=== PATIENT | female | born 1955 | race Caucasian/White ===

== ENCOUNTER 2016-05-19 10:00 | Inpatient (IN) | payer MEDICARE, MEDICAID ==
[~2016-05-19] VITALS: Ht 162.6 cm; Wt 63.2 kg
[~2016-05-19 10:00] MED LIST: DOCU250C91 PO; LITH300C3 PO; PALI234D IM; QUET300T2 PO
[2016-05-19 12:29] VITALS: BP 103/54
[2016-05-19] MEDS ORDERED: QUET200T PO (12:51)
[2016-05-19] MEDS ORDERED: HALOPERIDOL 5 MG TABLET PO PRN (13:00)
[2016-05-19] MEDS ORDERED: INFLUENZA VIRUS VACCINE QVS 2016-17 (3YR+)/PF 60 MCG/0.5 ML SYRINGE IM ONE (13:15)
[2016-05-19] MEDS: LITHIUM CARBONATE 300 MG CAPSULE PO SCH (17:00)
[2016-05-19 17:10] VITALS: BP 130/87
[2016-05-19] MEDS: QUEtiapine FUMARATE 200 MG TABLET PO SCH (20:18)
[2016-05-20 08:29] VITALS: BP 120/55
[2016-05-20] MEDS: LITHIUM CARBONATE 300 MG CAPSULE PO SCH ×2 (09:00→16:33)
[2016-05-20 16:05] VITALS: BP 126/81
[2016-05-20] MEDS: QUEtiapine FUMARATE 200 MG TABLET PO SCH (20:38)
[2016-05-21 06:03] VITALS: BP 106/61
[2016-05-21 08:19] VITALS: BP 100/67
[2016-05-21 08:29] LABS: BASOPHILS % (AUTO) 0.5 % (0.0-2.0); EOSINOPHILS % (AUTO) 1.1 % (1.0-6.0); HEMATOCRIT 44.8 % (36-46); HEMOGLOBIN 14.9 g/dL (12.0-16.0); LYMPHOCYTES % (AUTO) 25.5 % (22.0-44.0); MEAN CORPUSCULAR HEMOGLOBIN 30.9 pg (26.0-34.0); MEAN CORPUSCULAR HGB CONC 33.1 G/dL (31.0-37.0); MEAN CORPUSCULAR VOLUME 93 fL (80-100); MONOCYTES # (AUTO) 0.7 K/uL (0.1-1.0); MONOCYTES % (AUTO) 8.9 % (2.0-9.0); NEUTROPHILS # (AUTO) 5.1 K/uL (1.8-7.7); PLATELET COUNT (AUTO) 263 K/uL (150-450); RED CELL DISTRIBUTION WIDTH 14.6 % (11.5-14.5)
[2016-05-21 08:54] LABS: ALANINE AMINOTRANSFERASE 22 U/L (12-78); ALBUMIN 3.8 g/dL (3.4-5.0); ANION GAP 9 mmol/L (8-16); ASPARTATE AMINOTRANSFERASE 16 U/L (15-37); BILIRUBIN,TOTAL 0.6 mg/dL (0.1-1.0); CALCIUM, TOTAL 9.3 mg/dL (8.8-10.5); CARBON DIOXIDE 27 mmol/L (22-29); CHLORIDE 105 mmol/L (98-107); CREATININE 0.77 mg/dL (0.60-1.30); GLOMERULAR FILTR. RATE CALC > 60 mL/min (>60); SODIUM SERUM 141 mmol/L (136-145); UREA NITROGEN, BLOOD 18 mg/dL (7-18)
[2016-05-21] MEDS: LITHIUM CARBONATE 300 MG CAPSULE PO SCH ×2 (09:39→17:00)
[2016-05-21 16:13] VITALS: BP 115/62
[2016-05-21] MEDS: QUEtiapine FUMARATE 200 MG TABLET PO SCH (20:33)
[2016-05-22 08:09] VITALS: BP 101/63
[2016-05-22] MEDS: LITHIUM CARBONATE 300 MG CAPSULE PO SCH ×2 (09:00→16:44)
[2016-05-22 16:13] VITALS: BP 116/68
[2016-05-22] MEDS: QUEtiapine FUMARATE 200 MG TABLET PO SCH (20:33)
[2016-05-23] MEDS: LITHIUM CARBONATE 300 MG CAPSULE PO SCH ×2 (09:38→17:00)
[2016-05-23] MEDS: QUEtiapine FUMARATE 200 MG TABLET PO SCH (21:00)
[2016-05-24 08:37] VITALS: BP 104/84
[2016-05-24] MEDS: LITHIUM CARBONATE 300 MG CAPSULE PO SCH ×2 (09:00→17:00)
[2016-05-24 16:05] VITALS: BP 114/75
[2016-05-24] MEDS: QUEtiapine FUMARATE 200 MG TABLET PO SCH (21:00)
[2016-05-25] MEDS: LITHIUM CARBONATE 300 MG CAPSULE PO SCH ×2 (09:00→17:00)
[2016-05-25] MEDS: QUEtiapine FUMARATE 200 MG TABLET PO SCH (20:38)
[2016-05-26 08:42] VITALS: BP 104/65
[2016-05-26] MEDS: LITHIUM CARBONATE 300 MG CAPSULE PO SCH ×2 (08:48→16:49)
[2016-05-26 16:21] VITALS: BP 121/81
[2016-05-26] MEDS: QUEtiapine FUMARATE 200 MG TABLET PO SCH (20:42)
[2016-05-27 08:12] VITALS: BP 102/66
[2016-05-27] MEDS: LITHIUM CARBONATE 300 MG CAPSULE PO SCH ×2 (08:46→17:00)
[2016-05-27] MEDS ORDERED: HALOPERIDOL LACTATE 5 MG/ML VIAL IM PRN (09:00)
[2016-05-27] MEDS: QUEtiapine FUMARATE 200 MG TABLET PO SCH (20:32)
[2016-05-28 00:03] VITALS: BP 123/90
[2016-05-28] MEDS: LITHIUM CARBONATE 300 MG CAPSULE PO SCH ×2 (08:42→16:38)
[2016-05-28] MEDS: QUEtiapine FUMARATE 200 MG TABLET PO SCH (20:44)
[2016-05-29] MEDS: LITHIUM CARBONATE 300 MG CAPSULE PO SCH ×2 (09:11→16:11)
[2016-05-29 09:14] VITALS: BP 102/60
[2016-05-29] MEDS: QUEtiapine FUMARATE 200 MG TABLET PO SCH (20:21)
[2016-05-30 04:51] VITALS: BP 125/89
[2016-05-30] MEDS: LITHIUM CARBONATE 300 MG CAPSULE PO SCH ×2 (09:24→16:02)
[2016-05-30 16:13] VITALS: BP 104/68
[2016-05-30] MEDS: QUEtiapine FUMARATE 200 MG TABLET PO SCH (20:11)
[2016-05-30] MEDS ORDERED: MAGNESIUM CITRATE 300 ML ORAL SOLUTION PO PRN (21:15)
[2016-05-31] MEDS: DOCUSATE SODIUM 250 MG CAPSULE PO SCH (08:53)
[2016-05-31] MEDS: LITHIUM CARBONATE 300 MG CAPSULE PO SCH ×2 (08:53→16:35)
[2016-05-31 16:15] VITALS: BP 101/65
[2016-05-31] MEDS: QUEtiapine FUMARATE 200 MG TABLET PO SCH (20:17)
[2016-06-01 03:19] VITALS: BP 104/63
[2016-06-01] MEDS: DOCUSATE SODIUM 250 MG CAPSULE PO SCH (09:00)
[2016-06-01] MEDS: LITHIUM CARBONATE 300 MG CAPSULE PO SCH ×2 (09:00→16:43)
[2016-06-01] MEDS: QUEtiapine FUMARATE 200 MG TABLET PO SCH (20:37)
[2016-06-02 08:25] VITALS: BP 107/78
[2016-06-02] MEDS: LITHIUM CARBONATE 300 MG CAPSULE PO SCH ×2 (09:39→17:14)
[2016-06-02] MEDS: DOCUSATE SODIUM 250 MG CAPSULE PO SCH (09:39)
[2016-06-02 16:14] VITALS: BP 103/63
[2016-06-02] MEDS: QUEtiapine FUMARATE 200 MG TABLET PO SCH (20:37)
[2016-06-03 06:26] VITALS: BP 100/69
[2016-06-03 08:11] VITALS: BP 100/59
[2016-06-03] MEDS: DOCUSATE SODIUM 250 MG CAPSULE PO SCH (09:29)
[2016-06-03] MEDS: LITHIUM CARBONATE 300 MG CAPSULE PO SCH ×2 (09:29→17:07)
[2016-06-03 16:15] VITALS: BP 123/75
[2016-06-03] MEDS: QUEtiapine FUMARATE 200 MG TABLET PO SCH (20:35)
[2016-06-04 08:11] VITALS: BP 117/60
[2016-06-04] MEDS: DOCUSATE SODIUM 250 MG CAPSULE PO SCH (09:13)
[2016-06-04] MEDS: LITHIUM CARBONATE 300 MG CAPSULE PO SCH ×2 (09:13→17:15)
[2016-06-04] MEDS: QUEtiapine FUMARATE 200 MG TABLET PO SCH (20:46)
[2016-06-05 05:53] VITALS: BP 104/67
[2016-06-05 08:12] VITALS: BP 111/83
[2016-06-05] MEDS: LITHIUM CARBONATE 300 MG CAPSULE PO SCH ×2 (08:55→16:39)
[2016-06-05] MEDS: DOCUSATE SODIUM 250 MG CAPSULE PO SCH (08:55)
[2016-06-05] MEDS: MAGNESIUM HYDROXIDE SUSPENSION 30 ML UDCUP PO PRN (11:39)
[2016-06-05] MEDS: LORazepam 2 MG TABLET PO PRN (11:41)
[2016-06-05 16:08] VITALS: BP 118/88
[2016-06-05] MEDS: QUEtiapine FUMARATE 200 MG TABLET PO SCH (20:34)
[2016-06-05] MEDS ORDERED: RisperiDONE 2 MG TABLET PO SCH (21:00)
[2016-06-06 05:59] VITALS: BP 114/74
[2016-06-06] MEDS: LITHIUM CARBONATE 300 MG CAPSULE PO SCH ×2 (09:33→16:39)
[2016-06-06] MEDS: DOCUSATE SODIUM 250 MG CAPSULE PO SCH (09:33)
[2016-06-06] MEDS: POLYETHYLENE GLYCOL 3350 17 GM PACKET PO PRN (09:56)
[2016-06-06] MEDS: QUEtiapine FUMARATE 200 MG TABLET PO SCH (20:18)
[2016-06-06] MEDS: ZOLPIDEM TARTRATE 10 MG TABLET PO PRN (20:55)
[2016-06-07 08:31] VITALS: BP 101/63
[2016-06-07] MEDS: DOCUSATE SODIUM 250 MG CAPSULE PO SCH (09:38)
[2016-06-07] MEDS: LITHIUM CARBONATE 300 MG CAPSULE PO SCH ×2 (09:38→16:16)
[2016-06-07 16:11] VITALS: BP 103/64
[2016-06-07] MEDS: QUEtiapine FUMARATE 200 MG TABLET PO SCH (20:30)
[2016-06-08 08:11] VITALS: BP 108/66
[2016-06-08] MEDS: LITHIUM CARBONATE 300 MG CAPSULE PO SCH ×2 (08:22→16:08)
[2016-06-08] MEDS: DOCUSATE SODIUM 250 MG CAPSULE PO SCH ×2 (08:23→20:04)
[2016-06-08] MEDS: MAGNESIUM HYDROXIDE SUSPENSION 30 ML UDCUP PO PRN (16:08)
[2016-06-08 16:14] VITALS: BP 112/71
[2016-06-08] MEDS: QUEtiapine FUMARATE 200 MG TABLET PO SCH (20:04)
[2016-06-08 21:46] VITALS: BP 110/68
[2016-06-08] MEDS: IBUPROFEN 600 MG TABLET PO PRN (21:46)
[2016-06-09 08:11] VITALS: BP 108/55
[2016-06-09] MEDS: DOCUSATE SODIUM 250 MG CAPSULE PO SCH ×2 (08:57→20:40)
[2016-06-09] MEDS: LITHIUM CARBONATE 300 MG CAPSULE PO SCH ×2 (08:57→16:41)
[2016-06-09] MEDS: IBUPROFEN 600 MG TABLET PO PRN (17:35)
[2016-06-09 17:36] VITALS: BP 123/80
[2016-06-09] MEDS: QUEtiapine FUMARATE 200 MG TABLET PO SCH (20:40)
[2016-06-10 00:04] VITALS: BP 117/71
[2016-06-10] MEDS: LORazepam 2 MG TABLET PO PRN (01:01)
[2016-06-10] MEDS: LITHIUM CARBONATE 300 MG CAPSULE PO SCH ×2 (08:44→16:40)
[2016-06-10] MEDS: DOCUSATE SODIUM 250 MG CAPSULE PO SCH ×2 (08:44→20:43)
[2016-06-10 10:23] VITALS: BP 114/72
[2016-06-10] MEDS: IBUPROFEN 600 MG TABLET PO PRN ×2 (10:23→17:26)
[2016-06-10 16:17] VITALS: BP 103/63
[2016-06-10 17:26] VITALS: BP 124/67
[2016-06-10] MEDS: QUEtiapine FUMARATE 200 MG TABLET PO SCH (20:43)
[2016-06-11 08:12] VITALS: BP 107/63
[2016-06-11] MEDS: DOCUSATE SODIUM 250 MG CAPSULE PO SCH ×2 (09:03→20:45)
[2016-06-11] MEDS: LITHIUM CARBONATE 300 MG CAPSULE PO SCH ×2 (09:03→16:39)
[2016-06-11] MEDS: MAGNESIUM HYDROXIDE SUSPENSION 30 ML UDCUP PO PRN (09:05)
[2016-06-11] MEDS: IBUPROFEN 600 MG TABLET PO PRN (13:49)
[2016-06-11 16:19] VITALS: BP 109/72
[2016-06-11] MEDS: LORazepam 2 MG TABLET PO PRN (16:39)
[2016-06-11] MEDS: QUEtiapine FUMARATE 200 MG TABLET PO SCH (20:45)
[2016-06-12 00:12] VITALS: BP 108/66
[2016-06-12] MEDS: LORazepam 2 MG TABLET PO PRN (04:59)
[2016-06-12 08:12] VITALS: BP 106/59
[2016-06-12] MEDS: DOCUSATE SODIUM 250 MG CAPSULE PO SCH ×2 (08:46→20:02)
[2016-06-12] MEDS: LITHIUM CARBONATE 300 MG CAPSULE PO SCH ×2 (08:46→17:00)
[2016-06-12] MEDS: IBUPROFEN 600 MG TABLET PO PRN ×2 (08:56→18:15)
[2016-06-12] MEDS: MAGNESIUM HYDROXIDE SUSPENSION 30 ML UDCUP PO PRN ×2 (14:52→18:15)
[2016-06-12 16:12] VITALS: BP 134/76
[2016-06-12] MEDS: QUEtiapine FUMARATE 200 MG TABLET PO SCH (20:02)
[2016-06-12] MEDS: ZOLPIDEM TARTRATE 10 MG TABLET PO PRN (20:39)
[2016-06-13 07:00] VITALS: BP 112/71
[2016-06-13 08:10] VITALS: BP 106/68
[2016-06-13] MEDS: LITHIUM CARBONATE 300 MG CAPSULE PO SCH ×2 (08:33→16:40)
[2016-06-13] MEDS: DOCUSATE SODIUM 250 MG CAPSULE PO SCH ×2 (08:33→20:35)
[2016-06-13] MEDS: POLYETHYLENE GLYCOL 3350 17 GM PACKET PO PRN (08:34)
[2016-06-13 09:56] VITALS: BP 110/66
[2016-06-13] MEDS: IBUPROFEN 600 MG TABLET PO PRN ×2 (09:56→16:21)
[2016-06-13 16:06] VITALS: BP 115/77
[2016-06-13] MEDS: MAGNESIUM HYDROXIDE SUSPENSION 30 ML UDCUP PO PRN (16:20)
[2016-06-13] MEDS: QUEtiapine FUMARATE 200 MG TABLET PO SCH (20:35)
[2016-06-14 05:48] VITALS: BP 109/82
[2016-06-14] MEDS: IBUPROFEN 600 MG TABLET PO PRN ×2 (06:15→12:57)
[2016-06-14 08:12] VITALS: BP 99/59
[2016-06-14] MEDS: LITHIUM CARBONATE 300 MG CAPSULE PO SCH ×2 (08:25→16:34)
[2016-06-14] MEDS: DOCUSATE SODIUM 250 MG CAPSULE PO SCH ×2 (08:25→20:47)
[2016-06-14 09:55] LABS: BASOPHILS % (AUTO) 0.3 % (0.0-2.0); EOSINOPHILS % (AUTO) 3.1 % (1.0-6.0); HEMATOCRIT 37.5 % (36-46); HEMOGLOBIN 12.2 g/dL (12.0-16.0); LYMPHOCYTES # (AUTO) 1.5 K/uL (1.0-4.8); LYMPHOCYTES % (AUTO) 22.7 % (22.0-44.0); MEAN CORPUSCULAR HEMOGLOBIN 30.8 pg (26.0-34.0); MEAN CORPUSCULAR HGB CONC 32.6 G/dL (31.0-37.0); MEAN CORPUSCULAR VOLUME 95 fL (80-100); MONOCYTES # (AUTO) 0.5 K/uL (0.1-1.0); MONOCYTES % (AUTO) 6.7 % (2.0-9.0); NEUTROPHILS # (AUTO) 4.5 K/uL (1.8-7.7); NEUTROPHILS % (AUTO) 67.2 % (40.0-70.0); PLATELET COUNT (AUTO) 272 K/uL (150-450); RED BLOOD CELL COUNT(AUTO) 3.97 MIL/uL (4.00-5.20); RED CELL DISTRIBUTION WIDTH 14.6 % (11.5-14.5); WHITE BLOOD COUNT (AUTO) 6.7 K/uL (4.5-11.0)
[2016-06-14 09:58] LABS: ALANINE AMINOTRANSFERASE 25 U/L (12-78); ALBUMIN 3.6 g/dL (3.4-5.0); ANION GAP 9 mmol/L (8-16); ASPARTATE AMINOTRANSFERASE 22 U/L (15-37); BILIRUBIN,TOTAL 0.4 mg/dL (0.1-1.0); CALCIUM, TOTAL 8.9 mg/dL (8.8-10.5); CARBON DIOXIDE 27 mmol/L (22-29); CHLORIDE 105 mmol/L (98-107); CREATININE 0.86 mg/dL (0.60-1.30); GLOMERULAR FILTR. RATE CALC > 60 mL/min (>60); POTASSIUM 4.2 mmol/L (3.5-5.1); SODIUM SERUM 141 mmol/L (136-145); UREA NITROGEN, BLOOD 13 mg/dL (7-18)
[2016-06-14 10:08] LABS: HEMOGLOBIN A1C 5.3 % (4.5-6.2)
[2016-06-14 10:39] LABS: CHOL/HDL RATIO 3.6 (3.9-5.7); CREATINE KINASE MB 0.7 ng/mL (0-5); CREATINE KINASE, TOTAL 87 U/L (26-192); THYROID STIMULATING HORMONE 4.18 uIU/mL (0.36-3.74)
[2016-06-14 12:57] VITALS: BP 112/64
[2016-06-14 16:14] VITALS: BP 106/67
[2016-06-14] MEDS: QUEtiapine FUMARATE 200 MG TABLET PO SCH (20:47)
[2016-06-15 00:05] VITALS: BP 117/60
[2016-06-15 08:10] VITALS: BP 113/65
[2016-06-15] MEDS: LITHIUM CARBONATE 300 MG CAPSULE PO SCH ×2 (08:33→16:41)
[2016-06-15] MEDS: DOCUSATE SODIUM 250 MG CAPSULE PO SCH (08:34)
[2016-06-15] MEDS: MAGNESIUM HYDROXIDE SUSPENSION 30 ML UDCUP PO PRN (10:04)
[2016-06-15] MEDS: IBUPROFEN 600 MG TABLET PO PRN (10:04)
[2016-06-15 10:06] VITALS: BP 122/73
[2016-06-15 11:06] VITALS: BP 117/64
[2016-06-15 16:16] VITALS: BP 123/73
[2016-06-16 02:31] LABS: HEPATITIS Bs ANTIGEN SCREEN P Negative (Negative); HEPATITIS C AB SCREEN >11.0 s/co ratio (0.0-0.9)
== END 2016-06-15 18:40 | disposition home or self-care (01) | DRG 885 ==
LOC: B2X 12:51 → EDSTATUS 12:59
DX: F25.1 Schizoaffective disorder, depressive type (principal); G47.00 Insomnia, unspecified; F90.9 Attention-deficit hyperactivity disorder, unspecified type; I83.91 Asymptomatic varicose veins of right lower extremity; K59.00 Constipation, unspecified; D64.9 Anemia, unspecified; Z53.29 Procedure and treatment not carried out because of patient's decision for other reasons; F03.90 Unspecified dementia, unspecified severity, without behavioral disturbance, psychotic disturbance, mood disturbance, and anxiety; Z91.14 Patient's other noncompliance with medication regimen; Z91.5 Personal history of self-harm; Z88.6 Allergy status to analgesic agent; Z28.21 Immunization not carried out because of patient refusal; Z59.0 Homelessness; Z87.440 Personal history of urinary (tract) infections
CPT/HCPCS: 80074; 82306; 82607; 82746; 83036; 83735; 84439; 84443; 86592; 87081; J1630

== ENCOUNTER 2016-06-15 23:34 | Inpatient (IN) | payer MEDICARE, MEDICAID ==
[~2016-06-15] VITALS: Ht 162.6 cm; Wt 67.1 kg
[~2016-06-15 23:34] MED LIST changes: -PALI234D IM; +QUET200T PO; -QUET300T2 PO
[2016-06-16 02:44] VITALS: BP 121/67
[2016-06-16] MEDS ORDERED: LORazepam 2 MG TABLET PO PRN (03:45)
[2016-06-16] MEDS ORDERED: ZOLPIDEM TARTRATE 10 MG TABLET PO PRN (03:45)
[2016-06-16] MEDS ORDERED: HALOPERIDOL 5 MG TABLET PO PRN (03:45)
[2016-06-16 04:47] VITALS: BP 144/88
[2016-06-16] MEDS ORDERED: -PHARMACY VACCINE NOTE- MISC ONE ×2 (05:00)
[2016-06-16 08:27] VITALS: BP 103/68
[2016-06-16 16:17] VITALS: BP 128/78
[2016-06-16] MEDS: LITHIUM CARBONATE 300 MG CAPSULE PO SCH (16:36)
[2016-06-16] MEDS ORDERED: LITHIUM CARBONATE 300 MG CAPSULE PO SCH (17:00)
[2016-06-16] MEDS: MAGNESIUM HYDROXIDE SUSPENSION 30 ML UDCUP PO PRN (17:50)
[2016-06-16 17:58] VITALS: BP 134/83
[2016-06-16] MEDS: IBUPROFEN 600 MG TABLET PO PRN (18:02)
[2016-06-16] MEDS: DOCUSATE SODIUM 250 MG CAPSULE PO SCH (20:36)
[2016-06-16] MEDS ORDERED: QUEtiapine FUMARATE 200 MG TABLET PO SCH ×2 (21:00)
[2016-06-17] MEDS: IBUPROFEN 600 MG TABLET PO PRN (07:15)
[2016-06-17] MEDS: MAGNESIUM HYDROXIDE SUSPENSION 30 ML UDCUP PO PRN (07:16)
[2016-06-17 07:17] VITALS: BP 109/69
[2016-06-17 08:10] VITALS: BP 135/84
[2016-06-17 08:24] LABS: BASOPHILS % (AUTO) 0.6 % (0.0-2.0); EOSINOPHILS % (AUTO) 3.7 % (1.0-6.0); HEMATOCRIT 34.9 % (36-46); HEMOGLOBIN 11.6 g/dL (12.0-16.0); LYMPHOCYTES # (AUTO) 1.6 K/uL (1.0-4.8); LYMPHOCYTES % (AUTO) 23.7 % (22.0-44.0); MEAN CORPUSCULAR HEMOGLOBIN 31.1 pg (26.0-34.0); MEAN CORPUSCULAR HGB CONC 33.3 G/dL (31.0-37.0); MEAN CORPUSCULAR VOLUME 93 fL (80-100); MONOCYTES # (AUTO) 0.5 K/uL (0.1-1.0); MONOCYTES % (AUTO) 7.8 % (2.0-9.0); NEUTROPHILS # (AUTO) 4.3 K/uL (1.8-7.7); NEUTROPHILS % (AUTO) 64.2 % (40.0-70.0); PLATELET COUNT (AUTO) 300 K/uL (150-450); RED BLOOD CELL COUNT(AUTO) 3.73 MIL/uL (4.00-5.20); RED CELL DISTRIBUTION WIDTH 15.1 % (11.5-14.5); WHITE BLOOD COUNT (AUTO) 6.8 K/uL (4.5-11.0)
[2016-06-17] MEDS: DOCUSATE SODIUM 250 MG CAPSULE PO SCH (08:27)
[2016-06-17] MEDS: LITHIUM CARBONATE 300 MG CAPSULE PO SCH (08:28)
[2016-06-17 08:37] LABS: ALBUMIN 3.6 g/dL (3.4-5.0); BILIRUBIN,TOTAL 0.3 mg/dL (0.1-1.0); CALCIUM, TOTAL 8.8 mg/dL (8.8-10.5); CREATININE 0.98 mg/dL (0.60-1.30); POTASSIUM 4.1 mmol/L (3.5-5.1); TOTAL PROTEIN, SERUM 6.5 g/dL (6.4-8.2)
== END 2016-06-17 12:00 | disposition home or self-care (01) | DRG 885 ==
LOC: UNDOADMIN 06-16 02:48 → B3A 06-16 02:48 → B2X 06-16 11:01
DX: F20.0 Paranoid schizophrenia (principal); E78.5 Hyperlipidemia, unspecified; B19.20 Unspecified viral hepatitis C without hepatic coma; E03.9 Hypothyroidism, unspecified; D64.9 Anemia, unspecified; Z96.652 Presence of left artificial knee joint; K59.00 Constipation, unspecified; F41.9 Anxiety disorder, unspecified; E55.9 Vitamin D deficiency, unspecified; K29.70 Gastritis, unspecified, without bleeding; Z72.89 Other problems related to lifestyle; Z88.6 Allergy status to analgesic agent
CPT/HCPCS: 87081

== ENCOUNTER 2016-08-27 11:09 | Inpatient (IN) | payer MEDICARE, MEDICAID ==
[~2016-08-27] VITALS: Ht 162.6 cm; Wt 55.9 kg
[2016-08-27 13:15] VITALS: BP 115/72
[2016-08-27 13:40] VITALS: BP 149/73
[2016-08-27 16:36] VITALS: BP 116/61
[2016-08-27] MEDS: LITHIUM CARBONATE 300 MG CAPSULE PO SCH (16:53)
[2016-08-27] MEDS: QUEtiapine FUMARATE 200 MG TABLET PO SCH (20:33)
[2016-08-28 08:29] LABS: BASOPHILS % (AUTO) 0.1 % (0.0-2.0); EOSINOPHILS % (AUTO) 1.5 % (1.0-6.0); HEMATOCRIT 41.1 % (36-46); HEMOGLOBIN 13.6 g/dL (12.0-16.0); LYMPHOCYTES # (AUTO) 1.5 K/uL (1.0-4.8); LYMPHOCYTES % (AUTO) 18.6 % (22.0-44.0); MEAN CORPUSCULAR HEMOGLOBIN 30.6 pg (26.0-34.0); MEAN CORPUSCULAR VOLUME 93 fL (80-100); MONOCYTES # (AUTO) 0.7 K/uL (0.1-1.0); MONOCYTES % (AUTO) 9.2 % (2.0-9.0); NEUTROPHILS # (AUTO) 5.5 K/uL (1.8-7.7); NEUTROPHILS % (AUTO) 70.6 % (40.0-70.0); PLATELET COUNT (AUTO) 321 K/uL (150-450); RED BLOOD CELL COUNT(AUTO) 4.43 MIL/uL (4.00-5.20); RED CELL DISTRIBUTION WIDTH 14.3 % (11.5-14.5); WHITE BLOOD COUNT (AUTO) 7.9 K/uL (4.5-11.0)
[2016-08-28 08:35] LABS: LITHIUM < 0.20 mmol/L (0.60-1.20)
[2016-08-28 08:38] LABS: ALANINE AMINOTRANSFERASE 21 U/L (12-78); ALBUMIN 3.1 g/dL (3.4-5.0); ANION GAP 7 mmol/L (8-16); ASPARTATE AMINOTRANSFERASE 14 U/L (15-37); BILIRUBIN,TOTAL 0.3 mg/dL (0.1-1.0); CALCIUM, TOTAL 8.9 mg/dL (8.8-10.5); CARBON DIOXIDE 27 mmol/L (22-29); CHLORIDE 106 mmol/L (98-107); CHOL/HDL RATIO 3.6 (3.9-5.7); CREATINE KINASE, TOTAL 40 U/L (26-192); CREATININE 0.79 mg/dL (0.60-1.30); GLOMERULAR FILTR. RATE CALC > 60 mL/min (>60); POTASSIUM 3.6 mmol/L (3.5-5.1); SODIUM SERUM 140 mmol/L (136-145); THYROID STIMULATING HORMONE 0.22 uIU/mL (0.36-3.74); TOTAL PROTEIN, SERUM 6.6 g/dL (6.4-8.2); UREA NITROGEN, BLOOD 27 mg/dL (7-18)
[2016-08-28] MEDS: LITHIUM CARBONATE 300 MG CAPSULE PO SCH ×2 (08:41→16:27)
[2016-08-28] MEDS: LORazepam 1 MG TABLET PO PRN (08:41)
[2016-08-28] MEDS: HALOPERIDOL 5 MG TABLET PO PRN (08:42)
[2016-08-28] MEDS: NICOTINE 14 MG/24 HOUR PATCH TD SCH (08:42)
[2016-08-28] MEDS: DOCUSATE SODIUM 250 MG CAPSULE PO SCH ×2 (08:44→20:15)
[2016-08-28 16:28] VITALS: BP 128/77
[2016-08-28] MEDS: QUEtiapine FUMARATE 200 MG TABLET PO SCH (20:15)
[2016-08-29 03:33] VITALS: BP 118/86
[2016-08-29 08:08] VITALS: BP 111/66
[2016-08-29] MEDS: NICOTINE 14 MG/24 HOUR PATCH TD SCH (09:00)
[2016-08-29] MEDS: LITHIUM CARBONATE 300 MG CAPSULE PO SCH ×2 (09:27→16:04)
[2016-08-29] MEDS: DOCUSATE SODIUM 250 MG CAPSULE PO SCH ×2 (09:27→20:21)
[2016-08-29 16:00] VITALS: BP 121/79
[2016-08-29] MEDS: HALOPERIDOL 5 MG TABLET PO PRN (17:46)
[2016-08-29] MEDS: LORazepam 1 MG TABLET PO PRN (17:46)
[2016-08-29 17:47] VITALS: BP 136/89
[2016-08-29] MEDS: QUEtiapine FUMARATE 200 MG TABLET PO SCH (20:21)
[2016-08-30 06:56] VITALS: BP 131/77
[2016-08-30] MEDS: DOCUSATE SODIUM 250 MG CAPSULE PO SCH ×2 (08:38→20:01)
[2016-08-30] MEDS: LITHIUM CARBONATE 300 MG CAPSULE PO SCH ×2 (08:38→16:19)
[2016-08-30] MEDS: NICOTINE 14 MG/24 HOUR PATCH TD SCH (08:38)
[2016-08-30 08:56] VITALS: BP 105/81
[2016-08-30] MEDS: HALOPERIDOL 5 MG TABLET PO PRN (09:44)
[2016-08-30 16:24] VITALS: BP 119/77
[2016-08-30] MEDS: QUEtiapine FUMARATE 200 MG TABLET PO SCH (20:01)
[2016-08-30] MEDS: LORazepam 1 MG TABLET PO PRN (20:01)
[2016-08-31 08:33] VITALS: BP 129/74
[2016-08-31] MEDS: LORazepam 1 MG TABLET PO PRN (09:21)
[2016-08-31] MEDS: NICOTINE 14 MG/24 HOUR PATCH TD SCH (09:21)
[2016-08-31] MEDS: DOCUSATE SODIUM 250 MG CAPSULE PO SCH ×2 (09:21→20:37)
[2016-08-31] MEDS: LITHIUM CARBONATE 300 MG CAPSULE PO SCH ×2 (09:21→16:39)
[2016-08-31] MEDS: HALOPERIDOL 5 MG TABLET PO PRN (09:21)
[2016-08-31 16:26] VITALS: BP 111/66
[2016-08-31] MEDS: QUEtiapine FUMARATE 200 MG TABLET PO SCH (20:38)
[2016-09-01 06:37] VITALS: BP 117/71
[2016-09-01] MEDS: DOCUSATE SODIUM 250 MG CAPSULE PO SCH ×2 (09:00→20:15)
[2016-09-01] MEDS: NICOTINE 14 MG/24 HOUR PATCH TD SCH (09:00)
[2016-09-01] MEDS: LITHIUM CARBONATE 300 MG CAPSULE PO SCH ×2 (09:00→16:11)
[2016-09-01 16:55] VITALS: BP 93/54
[2016-09-01] MEDS: QUEtiapine FUMARATE 200 MG TABLET PO SCH (20:15)
[2016-09-02 02:06] VITALS: BP 107/62
[2016-09-02] MEDS: NICOTINE 14 MG/24 HOUR PATCH TD SCH (09:00)
[2016-09-02] MEDS: DOCUSATE SODIUM 250 MG CAPSULE PO SCH ×2 (09:00→20:58)
[2016-09-02] MEDS: LITHIUM CARBONATE 300 MG CAPSULE PO SCH ×2 (09:00→16:46)
[2016-09-02] MEDS: LORazepam 1 MG TABLET PO PRN (16:45)
[2016-09-02] MEDS: QUEtiapine FUMARATE 200 MG TABLET PO SCH (20:58)
[2016-09-02] MEDS: ZOLPIDEM TARTRATE 10 MG TABLET PO PRN (20:58)
[2016-09-03] MEDS: LITHIUM CARBONATE 300 MG CAPSULE PO SCH ×2 (09:04→16:32)
[2016-09-03] MEDS: DOCUSATE SODIUM 250 MG CAPSULE PO SCH ×2 (09:04→20:14)
[2016-09-03] MEDS: NICOTINE 14 MG/24 HOUR PATCH TD SCH (09:05)
[2016-09-03] MEDS: QUEtiapine FUMARATE 200 MG TABLET PO SCH (16:32)
[2016-09-03] MEDS: HALOPERIDOL 5 MG TABLET PO PRN (16:32)
[2016-09-03 16:49] VITALS: BP 109/63
[2016-09-03] MEDS: LORazepam 1 MG TABLET PO PRN (16:50)
[2016-09-03] MEDS: ZOLPIDEM TARTRATE 10 MG TABLET PO PRN (21:01)
[2016-09-04 00:59] VITALS: BP 100/70
[2016-09-04] MEDS: LORazepam 1 MG TABLET PO PRN ×3 (03:00→16:18)
[2016-09-04 08:22] LABS: BASOPHILS % (AUTO) 0.6 % (0.0-2.0); EOSINOPHILS % (AUTO) 2.6 % (1.0-6.0); HEMATOCRIT 35.8 % (36-46); HEMOGLOBIN 12.2 g/dL (12.0-16.0); LYMPHOCYTES # (AUTO) 1.5 K/uL (1.0-4.8); LYMPHOCYTES % (AUTO) 26.1 % (22.0-44.0); MEAN CORPUSCULAR HEMOGLOBIN 30.7 pg (26.0-34.0); MEAN CORPUSCULAR HGB CONC 34.1 G/dL (31.0-37.0); MEAN CORPUSCULAR VOLUME 90 fL (80-100); MONOCYTES # (AUTO) 0.5 K/uL (0.1-1.0); MONOCYTES % (AUTO) 8.7 % (2.0-9.0); NEUTROPHILS # (AUTO) 3.6 K/uL (1.8-7.7); PLATELET COUNT (AUTO) 289 K/uL (150-450); RED BLOOD CELL COUNT(AUTO) 3.97 MIL/uL (4.00-5.20); WHITE BLOOD COUNT (AUTO) 5.8 K/uL (4.5-11.0)
[2016-09-04 08:23] VITALS: BP 114/71
[2016-09-04 08:26] LABS: LITHIUM 0.31 mmol/L (0.60-1.20)
[2016-09-04] MEDS: NICOTINE 14 MG/24 HOUR PATCH TD SCH (08:47)
[2016-09-04] MEDS: LITHIUM CARBONATE 300 MG CAPSULE PO SCH ×2 (08:47→16:18)
[2016-09-04] MEDS: QUEtiapine FUMARATE 200 MG TABLET PO SCH ×2 (08:47→16:18)
[2016-09-04] MEDS: HALOPERIDOL 5 MG TABLET PO PRN (08:47)
[2016-09-04] MEDS: DOCUSATE SODIUM 250 MG CAPSULE PO SCH ×2 (08:47→20:15)
[2016-09-04 08:55] LABS: ALANINE AMINOTRANSFERASE 19 U/L (12-78); ALBUMIN 2.7 g/dL (3.4-5.0); ANION GAP 6 mmol/L (8-16); ASPARTATE AMINOTRANSFERASE 11 U/L (15-37); BILIRUBIN,TOTAL 0.2 mg/dL (0.1-1.0); CALCIUM, TOTAL 8.4 mg/dL (8.8-10.5); CARBON DIOXIDE 26 mmol/L (22-29); CHLORIDE 106 mmol/L (98-107); CREATININE 0.69 mg/dL (0.60-1.30); GLOMERULAR FILTR. RATE CALC > 60 mL/min (>60); POTASSIUM 3.6 mmol/L (3.5-5.1); SODIUM SERUM 138 mmol/L (136-145); THYROID STIMULATING HORMONE 1.92 uIU/mL (0.36-3.74); UREA NITROGEN, BLOOD 17 mg/dL (7-18)
[2016-09-04 16:10] VITALS: BP 110/68
[2016-09-04] MEDS: ZOLPIDEM TARTRATE 10 MG TABLET PO PRN (21:00)
[2016-09-05 02:10] VITALS: BP 112/71
[2016-09-05] MEDS: HALOPERIDOL 5 MG TABLET PO PRN ×2 (08:55→17:42)
[2016-09-05] MEDS: LORazepam 1 MG TABLET PO PRN ×2 (08:55→16:15)
[2016-09-05] MEDS: DOCUSATE SODIUM 250 MG CAPSULE PO SCH ×2 (08:55→20:01)
[2016-09-05] MEDS: LITHIUM CARBONATE 300 MG CAPSULE PO SCH ×2 (08:55→16:15)
[2016-09-05] MEDS: QUEtiapine FUMARATE 200 MG TABLET PO SCH ×2 (08:55→16:15)
[2016-09-05] MEDS: NICOTINE 14 MG/24 HOUR PATCH TD SCH (08:59)
[2016-09-05] MEDS: ZOLPIDEM TARTRATE 10 MG TABLET PO PRN (20:51)
[2016-09-06 01:12] VITALS: BP 118/79
[2016-09-06] MEDS: NICOTINE 14 MG/24 HOUR PATCH TD SCH (09:00)
[2016-09-06] MEDS: QUEtiapine FUMARATE 200 MG TABLET PO SCH ×2 (09:23→16:58)
[2016-09-06] MEDS: DOCUSATE SODIUM 250 MG CAPSULE PO SCH ×2 (09:23→20:38)
[2016-09-06] MEDS: HALOPERIDOL 5 MG TABLET PO PRN ×2 (09:23→17:01)
[2016-09-06] MEDS: LITHIUM CARBONATE 300 MG CAPSULE PO SCH ×2 (09:23→16:58)
[2016-09-06 16:08] VITALS: BP 116/84
[2016-09-06] MEDS: ZOLPIDEM TARTRATE 10 MG TABLET PO PRN (21:07)
[2016-09-07 02:30] VITALS: BP 113/77
[2016-09-07] MEDS: LITHIUM CARBONATE 300 MG CAPSULE PO SCH ×2 (08:36→16:37)
[2016-09-07] MEDS: DOCUSATE SODIUM 250 MG CAPSULE PO SCH ×2 (08:36→20:22)
[2016-09-07] MEDS: QUEtiapine FUMARATE 200 MG TABLET PO SCH ×2 (08:36→16:37)
[2016-09-07] MEDS: NICOTINE 14 MG/24 HOUR PATCH TD SCH (08:39)
[2016-09-07 08:43] VITALS: BP 100/73
[2016-09-07 16:05] VITALS: BP 118/75
[2016-09-07] MEDS: ZOLPIDEM TARTRATE 10 MG TABLET PO PRN (22:06)
[2016-09-08 02:39] VITALS: BP 117/63
[2016-09-08 08:11] VITALS: BP 141/65
[2016-09-08] MEDS: LITHIUM CARBONATE 300 MG CAPSULE PO SCH ×2 (08:59→16:24)
[2016-09-08] MEDS: NICOTINE 14 MG/24 HOUR PATCH TD SCH (08:59)
[2016-09-08] MEDS: QUEtiapine FUMARATE 200 MG TABLET PO SCH ×2 (08:59→16:24)
[2016-09-08] MEDS: DOCUSATE SODIUM 250 MG CAPSULE PO SCH ×2 (08:59→20:00)
[2016-09-08 16:00] VITALS: BP 120/80
[2016-09-08] MEDS: HALOPERIDOL 5 MG TABLET PO PRN (16:24)
[2016-09-08] MEDS: ZOLPIDEM TARTRATE 10 MG TABLET PO PRN (20:58)
[2016-09-09 06:48] VITALS: BP 115/72
[2016-09-09] MEDS: LITHIUM CARBONATE 300 MG CAPSULE PO SCH ×2 (08:19→16:09)
[2016-09-09] MEDS: DOCUSATE SODIUM 250 MG CAPSULE PO SCH (08:19)
[2016-09-09] MEDS: QUEtiapine FUMARATE 200 MG TABLET PO SCH ×2 (08:19→16:09)
[2016-09-09] MEDS: NICOTINE 14 MG/24 HOUR PATCH TD SCH (08:20)
[2016-09-09 08:33] VITALS: BP 115/75
[2016-09-09 16:43] VITALS: BP 98/67
== END 2016-09-09 17:15 | disposition home or self-care (01) | DRG 885 ==
LOC: B3A 12:50 → EDSTATUS 13:00
DX: F25.0 Schizoaffective disorder, bipolar type (principal); K59.00 Constipation, unspecified; E03.9 Hypothyroidism, unspecified; B19.20 Unspecified viral hepatitis C without hepatic coma; R73.9 Hyperglycemia, unspecified; E78.5 Hyperlipidemia, unspecified; D64.9 Anemia, unspecified; Z88.5 Allergy status to narcotic agent; Z88.8 Allergy status to other drugs, medicaments and biological substances; Z59.0 Homelessness; Z79.899 Other long term (current) drug therapy; Z80.1 Family history of malignant neoplasm of trachea, bronchus and lung; Z72.0 Tobacco use
CPT/HCPCS: 82105; 82306; 82607; 82746; 83036; 83735; 84439; 84443; 86592; 87081

== ENCOUNTER 2016-09-16 19:55 | Emergency (ER) | payer MEDICARE, OTHER ==
[~2016-09-16] VITALS: Ht 165.1 cm; Wt 56.0 kg
[2016-09-16] MEDS ORDERED: HYDROCODONE/ACETAMINOPHEN 5-325 MG TABLET PO ONE (21:00)
[2016-09-16 21:14] VITALS: BP 127/89
== END 2016-09-16 21:20 | disposition home or self-care (01) ==
LOC: EMS 20:00
DX: Z76.0 Encounter for issue of repeat prescription (principal); F32.9 Major depressive disorder, single episode, unspecified; F41.9 Anxiety disorder, unspecified; G89.29 Other chronic pain; F90.9 Attention-deficit hyperactivity disorder, unspecified type
CPT/HCPCS: 99282

== ENCOUNTER 2016-12-04 20:15 | Inpatient (IN) | payer MEDICARE, MEDICAID ==
[~2016-12-04] VITALS: Ht 162.6 cm; Wt 69.4 kg
[~2016-12-04 20:15] MED LIST changes: +AMIT50TA3 PO; +ARIP400S3 IM; +HC530C TP; -QUET200T PO; +QUET300T2 PO
[2016-12-04 21:19] VITALS: BP 117/67
[2016-12-04 21:20] VITALS: BP 117/67
[2016-12-04] MEDS ORDERED: PETROLATUM,WHITE 71 GM JELLY TP PRN (22:00)
[2016-12-04] MEDS ORDERED: BENZOCAINE/MENTHOL LOZENGE [8 LOZENGES/PACKET] PO PRN (22:00)
[2016-12-04] MEDS ORDERED: ALBUTEROL SULFATE HFA 90 MCG/PUFF 8 GM INHALER IH PRN (22:00)
[2016-12-04] MEDS ORDERED: ONDANSETRON HCL 4 MG TABLET PO PRN (22:00)
[2016-12-04] MEDS ORDERED: LOPERAMIDE HCL 2 MG CAPSULE PO PRN (22:00)
[2016-12-04] MEDS ORDERED: MAGNESIUM HYDROXIDE SUSPENSION 30 ML UDCUP PO PRN (22:00)
[2016-12-04] MEDS ORDERED: MAG HYDROX/AL HYDROX/SIMETH ES 30 ML SUSPENSION UDCUP PO PRN (22:00)
[2016-12-04] MEDS ORDERED: CloNIDine HCL 0.1 MG TABLET PO PRN (22:00)
[2016-12-04] MEDS: LORazepam 2 MG TABLET PO PRN (22:27)
[2016-12-05 02:25] VITALS: BP 118/73
[2016-12-05] MEDS: LORazepam 2 MG TABLET PO PRN ×3 (02:32→20:57)
[2016-12-05 08:30] VITALS: BP 132/88
[2016-12-05] MEDS: LITHIUM CARBONATE 300 MG CAPSULE PO SCH ×2 (08:50→16:27)
[2016-12-05] MEDS: OMEPRAZOLE 20 MG CAPSULE PO SCH (08:50)
[2016-12-05] MEDS: HYDROCORTISONE 0.5% 30 GM CREAM TP SCH ×2 (08:50→17:30)
[2016-12-05] MEDS: DOCUSATE SODIUM 100 MG CAPSULE PO SCH (09:00)
[2016-12-05 16:46] VITALS: BP 130/75
[2016-12-05] MEDS: IBUPROFEN 600 MG TABLET PO PRN (16:50)
[2016-12-05 18:03] LABS: APPEARANCE,URINE CLEAR (CLEAR); GLUCOSE, URINE (UA) NEGATIVE (NEGATIVE); KETONES,URINE NEGATIVE (NEGATIVE); LEUKOCYTE ESTERASE ,URINE TRACE (NEGATIVE); OCCULT BLOOD,URINE NEGATIVE (NEGATIVE); PROTEIN,URINE NEGATIVE (NEGATIVE)
[2016-12-05 18:04] LABS: ADD UA MICROSCOPIC YES
[2016-12-05 18:12] LABS: RBC,URINE 0-2 /HPF (0-2); SQUAMOUS EPITHELIAL CELL,UR Few /LPF (None Seen); WBC,URINE 0-2 /HPF (0-5)
[2016-12-05] MEDS: AMITRIPTYLINE HCL 50 MG TABLET PO SCH (20:12)
[2016-12-06] MEDS: LORazepam 2 MG TABLET PO PRN ×2 (01:01→20:56)
[2016-12-06 03:13] VITALS: BP 110/72
[2016-12-06 08:30] VITALS: BP 94/75
[2016-12-06] MEDS: LITHIUM CARBONATE 300 MG CAPSULE PO SCH ×2 (09:11→16:37)
[2016-12-06] MEDS: OMEPRAZOLE 20 MG CAPSULE PO SCH (09:11)
[2016-12-06] MEDS: DOCUSATE SODIUM 100 MG CAPSULE PO SCH (09:11)
[2016-12-06 09:12] VITALS: BP 105/78
[2016-12-06] MEDS: IBUPROFEN 600 MG TABLET PO PRN (09:12)
[2016-12-06] MEDS: HYDROCORTISONE 0.5% 30 GM CREAM TP SCH ×2 (09:16→16:37)
[2016-12-06 10:15] VITALS: BP 110/68
[2016-12-06 20:30] VITALS: BP 112/77
[2016-12-06] MEDS: AMITRIPTYLINE HCL 50 MG TABLET PO SCH (20:33)
[2016-12-06 20:52] VITALS: BP 123/95
[2016-12-07 00:41] VITALS: BP 118/68
[2016-12-07] MEDS: HALOPERIDOL 5 MG TABLET PO PRN (00:44)
[2016-12-07] MEDS: LITHIUM CARBONATE 300 MG CAPSULE PO SCH ×2 (08:34→17:38)
[2016-12-07] MEDS: HYDROCORTISONE 0.5% 30 GM CREAM TP SCH ×2 (08:34→17:38)
[2016-12-07] MEDS: DOCUSATE SODIUM 100 MG CAPSULE PO SCH (08:34)
[2016-12-07] MEDS: OMEPRAZOLE 20 MG CAPSULE PO SCH (08:34)
[2016-12-07 09:53] VITALS: BP 117/73
[2016-12-07 16:30] VITALS: BP 132/80
[2016-12-07] MEDS: NITROFURANTOIN/NITROFURAN MAC 100 MG CAPSULE [MACROBID] PO SCH (17:38)
[2016-12-07] MEDS: LORazepam 2 MG TABLET PO PRN ×2 (17:40→23:42)
[2016-12-07] MEDS: AMITRIPTYLINE HCL 50 MG TABLET PO SCH (20:34)
[2016-12-08 06:11] VITALS: BP 114/62
[2016-12-08 06:39] LABS: BASOPHILS % (AUTO) 0.4 % (0.0-2.0); EOSINOPHILS % (AUTO) 5.1 % (1.0-6.0); HEMATOCRIT 35.7 % (36-46); HEMOGLOBIN 12.2 g/dL (12.0-16.0); LYMPHOCYTES # (AUTO) 1.4 K/uL (1.0-4.8); LYMPHOCYTES % (AUTO) 21.5 % (22.0-44.0); MEAN CORPUSCULAR HEMOGLOBIN 31.2 pg (26.0-34.0); MEAN CORPUSCULAR HGB CONC 34.3 G/dL (31.0-37.0); MEAN CORPUSCULAR VOLUME 91 fL (80-100); MONOCYTES # (AUTO) 0.5 K/uL (0.1-1.0); NEUTROPHILS # (AUTO) 4.3 K/uL (1.8-7.7); PLATELET COUNT (AUTO) 288 K/uL (150-450); RED BLOOD CELL COUNT(AUTO) 3.92 MIL/uL (4.00-5.20); RED CELL DISTRIBUTION WIDTH 15.8 % (11.5-14.5); WHITE BLOOD COUNT (AUTO) 6.5 K/uL (4.5-11.0)
[2016-12-08 07:00] LABS: ALANINE AMINOTRANSFERASE 22 U/L (12-78); ALBUMIN 3.4 g/dL (3.4-5.0); ANION GAP 8 mmol/L (8-16); ASPARTATE AMINOTRANSFERASE 22 U/L (15-37); BILIRUBIN,TOTAL 0.4 mg/dL (0.1-1.0); CARBON DIOXIDE 28 mmol/L (22-29); CHLORIDE 105 mmol/L (98-107); CREATININE 0.83 mg/dL (0.60-1.30); GLOMERULAR FILTR. RATE CALC > 60 mL/min (>60); PHOSPHORUS 4.1 mg/dL (2.5-4.9); POTASSIUM 4.1 mmol/L (3.5-5.1); SODIUM SERUM 141 mmol/L (136-145); TOTAL PROTEIN, SERUM 6.5 g/dL (6.4-8.2); UREA NITROGEN, BLOOD 15 mg/dL (7-18)
[2016-12-08 09:08] VITALS: BP 125/69
[2016-12-08] MEDS: NITROFURANTOIN/NITROFURAN MAC 100 MG CAPSULE [MACROBID] PO SCH ×2 (10:10→16:09)
[2016-12-08] MEDS: LITHIUM CARBONATE 300 MG CAPSULE PO SCH ×2 (10:10→16:09)
[2016-12-08] MEDS: HYDROCORTISONE 0.5% 30 GM CREAM TP SCH ×2 (10:11→16:09)
[2016-12-08] MEDS: OMEPRAZOLE 20 MG CAPSULE PO SCH (10:12)
[2016-12-08] MEDS: DOCUSATE SODIUM 100 MG CAPSULE PO SCH (10:12)
[2016-12-08] MEDS: LORazepam 2 MG TABLET PO PRN ×3 (10:26→20:39)
[2016-12-08 16:15] VITALS: BP 116/75
[2016-12-08] MEDS: AMITRIPTYLINE HCL 50 MG TABLET PO SCH (20:10)
[2016-12-09 01:52] VITALS: BP 111/77
[2016-12-09 01:58] VITALS: BP 115/76
[2016-12-09] MEDS: IBUPROFEN 600 MG TABLET PO PRN (01:58)
[2016-12-09] MEDS: LORazepam 2 MG TABLET PO PRN ×3 (01:58→18:41)
[2016-12-09] MEDS: LITHIUM CARBONATE 300 MG CAPSULE PO SCH ×2 (08:32→16:26)
[2016-12-09] MEDS: NITROFURANTOIN/NITROFURAN MAC 100 MG CAPSULE [MACROBID] PO SCH ×2 (08:32→16:26)
[2016-12-09] MEDS: DOCUSATE SODIUM 100 MG CAPSULE PO SCH (08:32)
[2016-12-09] MEDS: OMEPRAZOLE 20 MG CAPSULE PO SCH (08:32)
[2016-12-09] MEDS: HYDROCORTISONE 0.5% 30 GM CREAM TP SCH ×2 (08:33→16:26)
[2016-12-09 10:24] VITALS: BP 118/82
[2016-12-09 16:43] VITALS: BP 107/76
[2016-12-09] MEDS: AMITRIPTYLINE HCL 50 MG TABLET PO SCH (20:03)
[2016-12-09] MEDS: HALOPERIDOL 5 MG TABLET PO PRN (20:21)
[2016-12-10 01:43] VITALS: BP 111/76
[2016-12-10] MEDS: LORazepam 2 MG TABLET PO PRN ×3 (01:46→20:13)
[2016-12-10] MEDS: OMEPRAZOLE 20 MG CAPSULE PO SCH (08:51)
[2016-12-10] MEDS: NITROFURANTOIN/NITROFURAN MAC 100 MG CAPSULE [MACROBID] PO SCH ×2 (08:51→16:20)
[2016-12-10] MEDS: HYDROCORTISONE 0.5% 30 GM CREAM TP SCH ×2 (08:51→16:20)
[2016-12-10] MEDS: LITHIUM CARBONATE 300 MG CAPSULE PO SCH ×2 (08:51→16:20)
[2016-12-10] MEDS: DOCUSATE SODIUM 100 MG CAPSULE PO SCH (08:51)
[2016-12-10 09:52] VITALS: BP 111/70
[2016-12-10 16:43] VITALS: BP 102/69
[2016-12-10] MEDS: AMITRIPTYLINE HCL 50 MG TABLET PO SCH (20:13)
[2016-12-10] MEDS: HALOPERIDOL 5 MG TABLET PO PRN (20:55)
[2016-12-11 03:51] VITALS: BP 99/70
[2016-12-11 08:45] VITALS: BP 111/70
[2016-12-11] MEDS: NITROFURANTOIN/NITROFURAN MAC 100 MG CAPSULE [MACROBID] PO SCH ×2 (09:51→17:51)
[2016-12-11] MEDS: DOCUSATE SODIUM 100 MG CAPSULE PO SCH (09:51)
[2016-12-11] MEDS: HYDROCORTISONE 0.5% 30 GM CREAM TP SCH ×2 (09:51→17:51)
[2016-12-11] MEDS: OMEPRAZOLE 20 MG CAPSULE PO SCH (09:51)
[2016-12-11] MEDS: LITHIUM CARBONATE 300 MG CAPSULE PO SCH ×2 (09:51→17:51)
[2016-12-11] MEDS: LORazepam 2 MG TABLET PO PRN ×2 (12:34→19:13)
[2016-12-11] MEDS: IBUPROFEN 600 MG TABLET PO PRN (13:59)
[2016-12-11 16:48] VITALS: BP 116/76
[2016-12-11] MEDS: AMITRIPTYLINE HCL 50 MG TABLET PO SCH (20:31)
[2016-12-12 00:50] VITALS: BP 110/76
[2016-12-12] MEDS: LORazepam 2 MG TABLET PO PRN ×4 (01:02→22:06)
[2016-12-12] MEDS: HALOPERIDOL 5 MG TABLET PO PRN ×4 (01:02→22:06)
[2016-12-12] MEDS: IBUPROFEN 600 MG TABLET PO PRN (01:03)
[2016-12-12 08:05] VITALS: BP 98/62
[2016-12-12] MEDS: LITHIUM CARBONATE 300 MG CAPSULE PO SCH ×2 (08:22→16:38)
[2016-12-12] MEDS: DOCUSATE SODIUM 100 MG CAPSULE PO SCH (08:22)
[2016-12-12] MEDS: OMEPRAZOLE 20 MG CAPSULE PO SCH (08:22)
[2016-12-12] MEDS: NITROFURANTOIN/NITROFURAN MAC 100 MG CAPSULE [MACROBID] PO SCH ×2 (08:22→16:38)
[2016-12-12] MEDS: HYDROCORTISONE 0.5% 30 GM CREAM TP SCH ×2 (08:23→16:38)
[2016-12-12 19:08] VITALS: BP 118/77
[2016-12-12] MEDS: AMITRIPTYLINE HCL 50 MG TABLET PO SCH (20:36)
[2016-12-13 04:15] VITALS: BP 122/78
[2016-12-13] MEDS: NITROFURANTOIN/NITROFURAN MAC 100 MG CAPSULE [MACROBID] PO SCH ×2 (08:04→16:37)
[2016-12-13] MEDS: OMEPRAZOLE 20 MG CAPSULE PO SCH (08:04)
[2016-12-13] MEDS: HYDROCORTISONE 0.5% 30 GM CREAM TP SCH ×2 (08:04→16:37)
[2016-12-13] MEDS: LITHIUM CARBONATE 300 MG CAPSULE PO SCH ×2 (08:04→16:37)
[2016-12-13] MEDS: DOCUSATE SODIUM 100 MG CAPSULE PO SCH (08:04)
[2016-12-13 08:52] VITALS: BP 123/85
[2016-12-13] MEDS: HALOPERIDOL 5 MG TABLET PO PRN (14:44)
[2016-12-13] MEDS: LORazepam 2 MG TABLET PO PRN (14:44)
[2016-12-13 16:28] VITALS: BP 106/60
[2016-12-13] MEDS: AMITRIPTYLINE HCL 50 MG TABLET PO SCH (20:13)
[2016-12-14] MEDS: LORazepam 2 MG TABLET PO PRN (03:03)
[2016-12-14] MEDS: HALOPERIDOL 5 MG TABLET PO PRN (03:03)
[2016-12-14 03:28] VITALS: BP 117/76
[2016-12-14 08:15] VITALS: BP 119/69
[2016-12-14] MEDS: HYDROCORTISONE 0.5% 30 GM CREAM TP SCH ×2 (08:19→20:17)
[2016-12-14] MEDS: OMEPRAZOLE 20 MG CAPSULE PO SCH (08:19)
[2016-12-14] MEDS: NITROFURANTOIN/NITROFURAN MAC 100 MG CAPSULE [MACROBID] PO SCH (08:19)
[2016-12-14] MEDS: DOCUSATE SODIUM 100 MG CAPSULE PO SCH (08:19)
[2016-12-14] MEDS: LITHIUM CARBONATE 300 MG CAPSULE PO SCH ×2 (08:19→16:35)
[2016-12-14] MEDS: IBUPROFEN 600 MG TABLET PO PRN (08:22)
[2016-12-14 09:03] VITALS: BP 115/72
[2016-12-14 09:30] VITALS: BP 120/76
[2016-12-14 17:00] VITALS: BP 118/80
[2016-12-14] MEDS: AMITRIPTYLINE HCL 50 MG TABLET PO SCH (20:15)
[2016-12-15] MEDS: OMEPRAZOLE 20 MG CAPSULE PO SCH (08:10)
[2016-12-15] MEDS: LITHIUM CARBONATE 300 MG CAPSULE PO SCH ×2 (08:10→16:02)
[2016-12-15] MEDS: DOCUSATE SODIUM 100 MG CAPSULE PO SCH (08:10)
[2016-12-15 08:40] VITALS: BP 102/62
[2016-12-15] MEDS: HYDROCORTISONE 0.5% 30 GM CREAM TP SCH ×2 (09:10→16:03)
[2016-12-15] MEDS: IBUPROFEN 600 MG TABLET PO PRN (12:45)
[2016-12-15 16:57] VITALS: BP 105/64
[2016-12-15] MEDS: HALOPERIDOL 5 MG TABLET PO PRN (17:07)
[2016-12-15] MEDS: LORazepam 2 MG TABLET PO PRN (17:07)
[2016-12-15] MEDS: AMITRIPTYLINE HCL 50 MG TABLET PO SCH (20:01)
[2016-12-16] MEDS: IBUPROFEN 600 MG TABLET PO PRN ×3 (00:36→16:07)
[2016-12-16 00:37] VITALS: BP 100/63
[2016-12-16 08:12] VITALS: BP 124/73
[2016-12-16] MEDS: OMEPRAZOLE 20 MG CAPSULE PO SCH (08:12)
[2016-12-16] MEDS: LITHIUM CARBONATE 300 MG CAPSULE PO SCH ×2 (08:12→16:08)
[2016-12-16] MEDS: HYDROCORTISONE 0.5% 30 GM CREAM TP SCH ×2 (08:13→16:08)
[2016-12-16] MEDS: DOCUSATE SODIUM 100 MG CAPSULE PO SCH (08:13)
[2016-12-16] MEDS: HALOPERIDOL 5 MG TABLET PO PRN (13:24)
[2016-12-16] MEDS: LORazepam 2 MG TABLET PO PRN (13:24)
[2016-12-16 16:05] VITALS: BP 113/76
[2016-12-16] MEDS: AMITRIPTYLINE HCL 50 MG TABLET PO SCH (20:31)
[2016-12-17 02:15] VITALS: BP 100/68
[2016-12-17] MEDS: IBUPROFEN 600 MG TABLET PO PRN ×3 (02:18→19:08)
[2016-12-17] MEDS: LORazepam 2 MG TABLET PO PRN ×2 (04:03→12:54)
[2016-12-17 08:23] VITALS: BP 106/78
[2016-12-17] MEDS: OMEPRAZOLE 20 MG CAPSULE PO SCH (08:25)
[2016-12-17] MEDS: LITHIUM CARBONATE 300 MG CAPSULE PO SCH ×2 (08:25→16:08)
[2016-12-17] MEDS: HALOPERIDOL 5 MG TABLET PO PRN (08:26)
[2016-12-17] MEDS: HYDROCORTISONE 0.5% 30 GM CREAM TP SCH ×2 (09:00→17:00)
[2016-12-17] MEDS: ACETAMINOPHEN 325 MG TABLET PO PRN (12:54)
[2016-12-17 16:06] VITALS: BP 122/77
[2016-12-17] MEDS: AMITRIPTYLINE HCL 50 MG TABLET PO SCH (21:12)
[2016-12-18 01:05] VITALS: BP 157/81
[2016-12-18] MEDS: HALOPERIDOL 5 MG TABLET PO PRN ×3 (01:11→20:17)
[2016-12-18] MEDS: LORazepam 2 MG TABLET PO PRN ×3 (01:12→20:17)
[2016-12-18 03:40] VITALS: BP 110/82
[2016-12-18] MEDS: IBUPROFEN 600 MG TABLET PO PRN ×2 (03:43→08:54)
[2016-12-18 08:54] VITALS: BP 123/83
[2016-12-18] MEDS: ARIPiprazole ER SUSPENSION 400 MG PRE-FILLED DUAL CHAMBER SYRINGE IM SCH (08:54)
[2016-12-18] MEDS: DOCUSATE SODIUM 100 MG CAPSULE PO PRN (08:55)
[2016-12-18] MEDS: HYDROCORTISONE 0.5% 30 GM CREAM TP SCH ×2 (08:55→16:18)
[2016-12-18] MEDS: LITHIUM CARBONATE 300 MG CAPSULE PO SCH ×2 (08:55→16:18)
[2016-12-18] MEDS: OMEPRAZOLE 20 MG CAPSULE PO SCH (08:55)
[2016-12-18] MEDS: MAGNESIUM OXIDE 400 MG TABLET PO SCH (16:18)
[2016-12-18 16:50] VITALS: BP 120/79
[2016-12-18] MEDS: AMITRIPTYLINE HCL 50 MG TABLET PO SCH (20:15)
[2016-12-19 02:45] VITALS: BP 113/81
[2016-12-19] MEDS: HALOPERIDOL 5 MG TABLET PO PRN (02:47)
[2016-12-19] MEDS: LORazepam 2 MG TABLET PO PRN ×3 (02:47→17:18)
[2016-12-19] MEDS: MAGNESIUM OXIDE 400 MG TABLET PO SCH ×2 (08:38→16:35)
[2016-12-19] MEDS: LITHIUM CARBONATE 300 MG CAPSULE PO SCH ×2 (08:38→16:35)
[2016-12-19] MEDS: HYDROCORTISONE 0.5% 30 GM CREAM TP SCH ×2 (08:38→16:35)
[2016-12-19] MEDS: OMEPRAZOLE 20 MG CAPSULE PO SCH (08:38)
[2016-12-19 08:40] VITALS: BP 122/82
[2016-12-19 09:59] VITALS: BP 123/89
[2016-12-19] MEDS: IBUPROFEN 600 MG TABLET PO PRN ×2 (09:59→17:18)
[2016-12-19 10:59] VITALS: BP 120/87
[2016-12-19 17:00] VITALS: BP 125/88
[2016-12-19] MEDS: AMITRIPTYLINE HCL 50 MG TABLET PO SCH (21:23)
[2016-12-20 01:20] VITALS: BP 100/77
[2016-12-20] MEDS: HALOPERIDOL 5 MG TABLET PO PRN (01:25)
[2016-12-20] MEDS: LORazepam 2 MG TABLET PO PRN ×2 (01:26→19:06)
[2016-12-20] MEDS: IBUPROFEN 600 MG TABLET PO PRN ×2 (01:30→19:06)
[2016-12-20] MEDS: OMEPRAZOLE 20 MG CAPSULE PO SCH (08:42)
[2016-12-20] MEDS: MAGNESIUM OXIDE 400 MG TABLET PO SCH ×2 (08:42→16:49)
[2016-12-20] MEDS: LITHIUM CARBONATE 300 MG CAPSULE PO SCH ×2 (08:42→16:50)
[2016-12-20] MEDS: HYDROCORTISONE 0.5% 30 GM CREAM TP SCH ×2 (08:42→16:48)
[2016-12-20 09:14] VITALS: BP 116/78
[2016-12-20 19:04] VITALS: BP 111/80
[2016-12-20] MEDS: AMITRIPTYLINE HCL 50 MG TABLET PO SCH (21:14)
[2016-12-21 00:09] VITALS: BP 110/83
[2016-12-21 03:45] VITALS: BP 130/75
[2016-12-21] MEDS: LORazepam 2 MG TABLET PO PRN ×2 (03:48→16:35)
[2016-12-21] MEDS: HALOPERIDOL 5 MG TABLET PO PRN (03:48)
[2016-12-21] MEDS: IBUPROFEN 600 MG TABLET PO PRN ×3 (03:49→16:37)
[2016-12-21] MEDS: HYDROCORTISONE 0.5% 30 GM CREAM TP SCH ×2 (08:08→21:20)
[2016-12-21] MEDS: MAGNESIUM OXIDE 400 MG TABLET PO SCH ×2 (08:08→16:35)
[2016-12-21] MEDS: LITHIUM CARBONATE 300 MG CAPSULE PO SCH ×2 (08:08→16:35)
[2016-12-21] MEDS: OMEPRAZOLE 20 MG CAPSULE PO SCH (08:08)
[2016-12-21 08:10] VITALS: BP 118/75
[2016-12-21 16:35] VITALS: BP 147/84
[2016-12-21] MEDS: AMITRIPTYLINE HCL 50 MG TABLET PO SCH (21:21)
[2016-12-22 05:15] VITALS: BP 126/87
[2016-12-22] MEDS: IBUPROFEN 600 MG TABLET PO PRN ×2 (05:33→13:24)
[2016-12-22 08:05] VITALS: BP 137/85
[2016-12-22] MEDS: MAGNESIUM OXIDE 400 MG TABLET PO SCH ×2 (09:00→16:35)
[2016-12-22] MEDS: HYDROCORTISONE 0.5% 30 GM CREAM TP SCH ×3 (09:00→16:36)
[2016-12-22] MEDS: LITHIUM CARBONATE 300 MG CAPSULE PO SCH ×2 (09:00→16:36)
[2016-12-22] MEDS: OMEPRAZOLE 20 MG CAPSULE PO SCH (09:00)
[2016-12-22] MEDS: LORazepam 2 MG TABLET PO PRN (13:24)
[2016-12-22 16:52] VITALS: BP 131/79
[2016-12-22] MEDS: AMITRIPTYLINE HCL 50 MG TABLET PO SCH (20:45)
[2016-12-23] MEDS: LORazepam 2 MG TABLET PO PRN ×2 (01:07→16:00)
[2016-12-23] MEDS: HALOPERIDOL 5 MG TABLET PO PRN (01:07)
[2016-12-23 04:06] VITALS: BP 130/71
[2016-12-23 06:20] VITALS: BP 132/73
[2016-12-23] MEDS: ACETAMINOPHEN 325 MG TABLET PO PRN ×2 (06:26→16:02)
[2016-12-23 08:00] VITALS: BP 126/71
[2016-12-23] MEDS: MAGNESIUM OXIDE 400 MG TABLET PO SCH ×2 (08:02→15:59)
[2016-12-23] MEDS: OMEPRAZOLE 20 MG CAPSULE PO SCH (08:02)
[2016-12-23] MEDS: LITHIUM CARBONATE 300 MG CAPSULE PO SCH ×2 (08:02→15:59)
[2016-12-23] MEDS: HYDROCORTISONE 0.5% 30 GM CREAM TP SCH ×2 (08:03→15:59)
[2016-12-23] MEDS: IBUPROFEN 600 MG TABLET PO PRN (11:25)
[2016-12-23 16:02] VITALS: BP 119/83
[2016-12-23] MEDS: AMITRIPTYLINE HCL 50 MG TABLET PO SCH (20:09)
[2016-12-24 00:02] VITALS: BP 127/69
[2016-12-24] MEDS: LORazepam 2 MG TABLET PO PRN ×2 (00:14→22:48)
[2016-12-24] MEDS: HALOPERIDOL 5 MG TABLET PO PRN ×2 (01:06→22:48)
[2016-12-24] MEDS: MAGNESIUM OXIDE 400 MG TABLET PO SCH ×2 (08:44→16:10)
[2016-12-24 08:45] VITALS: BP 112/72
[2016-12-24] MEDS: OMEPRAZOLE 20 MG CAPSULE PO SCH (08:45)
[2016-12-24] MEDS: IBUPROFEN 600 MG TABLET PO PRN ×2 (08:45→16:44)
[2016-12-24] MEDS: HYDROCORTISONE 0.5% 30 GM CREAM TP SCH ×2 (08:45→16:10)
[2016-12-24] MEDS: LITHIUM CARBONATE 300 MG CAPSULE PO SCH ×2 (08:45→16:10)
[2016-12-24 16:46] VITALS: BP 112/71
[2016-12-24] MEDS: AMITRIPTYLINE HCL 50 MG TABLET PO SCH (20:15)
[2016-12-25] MEDS: IBUPROFEN 600 MG TABLET PO PRN (06:55)
[2016-12-25 08:20] VITALS: BP 126/63
[2016-12-25] MEDS: OMEPRAZOLE 20 MG CAPSULE PO SCH (08:42)
[2016-12-25] MEDS: MAGNESIUM OXIDE 400 MG TABLET PO SCH ×2 (08:43→16:03)
[2016-12-25] MEDS: LITHIUM CARBONATE 300 MG CAPSULE PO SCH ×2 (08:43→16:03)
[2016-12-25] MEDS: HYDROCORTISONE 0.5% 30 GM CREAM TP SCH ×2 (08:43→19:00)
[2016-12-25] MEDS: LORazepam 2 MG TABLET PO PRN ×2 (16:03→20:13)
[2016-12-25 19:16] VITALS: BP 118/77
[2016-12-25] MEDS: AMITRIPTYLINE HCL 50 MG TABLET PO SCH (20:11)
[2016-12-26 04:15] VITALS: BP 115/67
[2016-12-26] MEDS: HALOPERIDOL 5 MG TABLET PO PRN ×2 (04:21→12:10)
[2016-12-26] MEDS: LORazepam 2 MG TABLET PO PRN ×2 (04:21→12:11)
[2016-12-26] MEDS: HYDROCORTISONE 0.5% 30 GM CREAM TP SCH ×2 (08:01→17:05)
[2016-12-26] MEDS: LITHIUM CARBONATE 300 MG CAPSULE PO SCH ×2 (08:01→17:05)
[2016-12-26] MEDS: OMEPRAZOLE 20 MG CAPSULE PO SCH (08:01)
[2016-12-26] MEDS: MAGNESIUM OXIDE 400 MG TABLET PO SCH ×2 (08:01→17:05)
[2016-12-26] MEDS: IBUPROFEN 600 MG TABLET PO PRN (09:23)
[2016-12-26 09:24] VITALS: BP 104/67
[2016-12-26 16:19] VITALS: BP 107/69
[2016-12-26] MEDS: AMITRIPTYLINE HCL 50 MG TABLET PO SCH (20:12)
[2016-12-27 03:00] VITALS: BP 111/75
[2016-12-27] MEDS: LORazepam 2 MG TABLET PO PRN ×2 (03:09→23:57)
[2016-12-27] MEDS: HALOPERIDOL 5 MG TABLET PO PRN ×2 (03:09→23:57)
[2016-12-27] MEDS: HYDROCORTISONE 0.5% 30 GM CREAM TP SCH ×2 (08:08→16:41)
[2016-12-27] MEDS: OMEPRAZOLE 20 MG CAPSULE PO SCH (08:08)
[2016-12-27] MEDS: LITHIUM CARBONATE 300 MG CAPSULE PO SCH ×2 (08:08→16:40)
[2016-12-27] MEDS: MAGNESIUM OXIDE 400 MG TABLET PO SCH ×2 (08:08→16:40)
[2016-12-27 08:26] VITALS: BP 114/70
[2016-12-27] MEDS: AMITRIPTYLINE HCL 50 MG TABLET PO SCH (20:07)
[2016-12-27 22:15] VITALS: BP 119/68
[2016-12-27 23:58] VITALS: BP 113/78
[2016-12-28 00:05] VITALS: BP 113/78
[2016-12-28] MEDS: OMEPRAZOLE 20 MG CAPSULE PO SCH (09:01)
[2016-12-28] MEDS: MAGNESIUM OXIDE 400 MG TABLET PO SCH ×2 (09:01→16:17)
[2016-12-28] MEDS: LITHIUM CARBONATE 300 MG CAPSULE PO SCH ×2 (09:01→16:17)
[2016-12-28 09:04] VITALS: BP 108/72
[2016-12-28] MEDS: IBUPROFEN 600 MG TABLET PO PRN ×2 (09:04→16:19)
[2016-12-28 09:24] VITALS: BP 108/72
[2016-12-28] MEDS ORDERED: HYDROCORTISONE 0.5% 30 GM CREAM TP PRN (14:00)
[2016-12-28 16:16] VITALS: BP 102/67
[2016-12-28 16:19] VITALS: BP 104/67
[2016-12-28] MEDS: LORazepam 2 MG TABLET PO PRN (17:49)
[2016-12-28] MEDS: AMITRIPTYLINE HCL 50 MG TABLET PO SCH (20:42)
[2016-12-29 09:12] VITALS: BP 117/70
[2016-12-29] MEDS: LITHIUM CARBONATE 300 MG CAPSULE PO SCH ×2 (09:16→16:15)
[2016-12-29] MEDS: OMEPRAZOLE 20 MG CAPSULE PO SCH (09:17)
[2016-12-29] MEDS: MAGNESIUM OXIDE 400 MG TABLET PO SCH ×2 (09:17→16:14)
[2016-12-29] MEDS: IBUPROFEN 600 MG TABLET PO PRN ×2 (09:19→16:14)
[2016-12-29 16:15] VITALS: BP 127/75
[2016-12-29] MEDS: LORazepam 2 MG TABLET PO PRN (20:16)
[2016-12-29] MEDS: AMITRIPTYLINE HCL 50 MG TABLET PO SCH (21:19)
[2016-12-29] MEDS: HALOPERIDOL 5 MG TABLET PO PRN (22:52)
[2016-12-30] MEDS: IBUPROFEN 600 MG TABLET PO PRN ×2 (07:28→16:56)
[2016-12-30] MEDS: MAGNESIUM OXIDE 400 MG TABLET PO SCH ×2 (08:10→16:56)
[2016-12-30] MEDS: OMEPRAZOLE 20 MG CAPSULE PO SCH (08:11)
[2016-12-30] MEDS: LITHIUM CARBONATE 300 MG CAPSULE PO SCH ×2 (08:11→16:56)
[2016-12-30] MEDS: CARBAMIDE PEROXIDE 6.5% 15 ML OTIC SOLUTION AU SCH (16:56)
[2016-12-30] MEDS: DICLOFENAC SODIUM 1% 100 GM GEL [4GM] TP SCH (16:56)
[2016-12-30 16:59] VITALS: BP 118/75
[2016-12-30 19:38] VITALS: BP 121/72
[2016-12-30] MEDS: AMITRIPTYLINE HCL 75 MG TABLET PO SCH (20:08)
[2016-12-30] MEDS: LORazepam 2 MG TABLET PO PRN (22:14)
[2016-12-30] MEDS: HALOPERIDOL 5 MG TABLET PO PRN (22:14)
[2016-12-31 04:37] VITALS: BP 106/71
[2016-12-31 08:05] VITALS: BP 104/67
[2016-12-31] MEDS: MAGNESIUM OXIDE 400 MG TABLET PO SCH ×2 (08:19→17:29)
[2016-12-31] MEDS: OMEPRAZOLE 20 MG CAPSULE PO SCH (08:19)
[2016-12-31] MEDS: DOCUSATE SODIUM 100 MG CAPSULE PO PRN (08:19)
[2016-12-31] MEDS: LITHIUM CARBONATE 300 MG CAPSULE PO SCH ×2 (08:19→17:00)
[2016-12-31] MEDS: CARBAMIDE PEROXIDE 6.5% 15 ML OTIC SOLUTION AU SCH ×2 (08:21→17:38)
[2016-12-31] MEDS: DICLOFENAC SODIUM 1% 100 GM GEL [4GM] TP SCH ×2 (08:22→18:05)
[2016-12-31 16:38] VITALS: BP 108/65
[2016-12-31] MEDS: AMITRIPTYLINE HCL 75 MG TABLET PO SCH (21:05)
[2016-12-31] MEDS: HALOPERIDOL 5 MG TABLET PO PRN (21:08)
[2016-12-31] MEDS: LORazepam 2 MG TABLET PO PRN (21:08)
[2017-01-01 05:43] VITALS: BP 139/73
[2017-01-01] MEDS: CARBAMIDE PEROXIDE 6.5% 15 ML OTIC SOLUTION AU SCH ×2 (09:50→16:51)
[2017-01-01] MEDS: LITHIUM CARBONATE 300 MG CAPSULE PO SCH ×2 (09:50→16:50)
[2017-01-01] MEDS: OMEPRAZOLE 20 MG CAPSULE PO SCH (09:50)
[2017-01-01] MEDS: MAGNESIUM OXIDE 400 MG TABLET PO SCH ×2 (09:50→16:51)
[2017-01-01] MEDS: DICLOFENAC SODIUM 1% 100 GM GEL [4GM] TP SCH ×2 (09:51→16:51)
[2017-01-01] MEDS: HALOPERIDOL 5 MG TABLET PO PRN (09:54)
[2017-01-01] MEDS: IBUPROFEN 600 MG TABLET PO PRN (15:05)
[2017-01-01] MEDS: LORazepam 2 MG TABLET PO PRN (20:09)
[2017-01-01] MEDS: AMITRIPTYLINE HCL 75 MG TABLET PO SCH (21:03)
[2017-01-02] MEDS: CARBAMIDE PEROXIDE 6.5% 15 ML OTIC SOLUTION AU SCH ×2 (08:15→15:50)
[2017-01-02] MEDS: MAGNESIUM OXIDE 400 MG TABLET PO SCH ×2 (08:16→15:49)
[2017-01-02] MEDS: LITHIUM CARBONATE 300 MG CAPSULE PO SCH ×3 (08:16→16:40)
[2017-01-02] MEDS: OMEPRAZOLE 20 MG CAPSULE PO SCH (08:17)
[2017-01-02] MEDS: DICLOFENAC SODIUM 1% 100 GM GEL [4GM] TP SCH ×2 (08:17→15:50)
[2017-01-02 08:18] VITALS: BP 128/88
[2017-01-02] MEDS: HALOPERIDOL 5 MG TABLET PO PRN ×2 (16:40→20:42)
[2017-01-02] MEDS: LORazepam 2 MG TABLET PO PRN ×2 (16:40→20:42)
[2017-01-02 16:59] VITALS: BP 139/84
[2017-01-02] MEDS ORDERED: HALOPERIDOL LACTATE 5 MG/ML VIAL IM PRN (17:00)
[2017-01-02] MEDS: AMITRIPTYLINE HCL 75 MG TABLET PO SCH (20:27)
[2017-01-03 00:37] VITALS: BP 118/75
[2017-01-03] MEDS: IBUPROFEN 600 MG TABLET PO PRN ×3 (00:40→21:58)
[2017-01-03] MEDS: HALOPERIDOL 5 MG TABLET PO PRN ×2 (00:40→16:42)
[2017-01-03] MEDS: LORazepam 2 MG TABLET PO PRN ×2 (00:40→16:42)
[2017-01-03] MEDS: DICLOFENAC SODIUM 1% 100 GM GEL [4GM] TP SCH ×2 (08:39→16:38)
[2017-01-03] MEDS: OMEPRAZOLE 20 MG CAPSULE PO SCH (08:39)
[2017-01-03] MEDS: MAGNESIUM OXIDE 400 MG TABLET PO SCH ×2 (08:39→16:38)
[2017-01-03] MEDS: LITHIUM CARBONATE 300 MG CAPSULE PO SCH ×2 (08:39→16:38)
[2017-01-03] MEDS: CARBAMIDE PEROXIDE 6.5% 15 ML OTIC SOLUTION AU SCH ×2 (08:39→16:38)
[2017-01-03 09:19] VITALS: BP 102/68
[2017-01-03 10:20] VITALS: BP 111/72
[2017-01-03 11:25] VITALS: BP 114/68
[2017-01-03] MEDS: AMITRIPTYLINE HCL 75 MG TABLET PO SCH (20:15)
[2017-01-03 21:01] VITALS: BP 120/71
[2017-01-03 21:59] VITALS: BP 116/69
[2017-01-04 00:30] VITALS: BP 114/78
[2017-01-04] MEDS: ACETAMINOPHEN 325 MG TABLET PO PRN (00:31)
[2017-01-04 08:05] VITALS: BP 114/78
[2017-01-04] MEDS: CARBAMIDE PEROXIDE 6.5% 15 ML OTIC SOLUTION AU SCH ×2 (08:54→16:55)
[2017-01-04] MEDS: LITHIUM CARBONATE 300 MG CAPSULE PO SCH ×2 (08:54→16:55)
[2017-01-04] MEDS: MAGNESIUM OXIDE 400 MG TABLET PO SCH ×2 (08:55→16:55)
[2017-01-04] MEDS: DICLOFENAC SODIUM 1% 100 GM GEL [4GM] TP SCH ×2 (08:55→17:12)
[2017-01-04] MEDS: OMEPRAZOLE 20 MG CAPSULE PO SCH (08:55)
[2017-01-04] MEDS: IBUPROFEN 600 MG TABLET PO PRN ×2 (08:58→16:55)
[2017-01-04 10:00] VITALS: BP 120/68
[2017-01-04 16:52] VITALS: BP 119/69
[2017-01-04 17:52] VITALS: BP 121/77
[2017-01-04] MEDS: AMITRIPTYLINE HCL 75 MG TABLET PO SCH (20:43)
[2017-01-04] MEDS: LORazepam 2 MG TABLET PO PRN (21:38)
[2017-01-04] MEDS: HALOPERIDOL 5 MG TABLET PO PRN (21:38)
[2017-01-05 05:17] VITALS: BP 129/77
[2017-01-05 06:37] LABS: HEMATOCRIT 36.3 % (36-46); HEMOGLOBIN 12.3 g/dL (12.0-16.0); MEAN CORPUSCULAR HEMOGLOBIN 31.6 pg (26.0-34.0); MEAN CORPUSCULAR HGB CONC 33.8 G/dL (31.0-37.0); MEAN CORPUSCULAR VOLUME 94 fL (80-100); PLATELET COUNT (AUTO) 287 K/uL (150-450); RED BLOOD CELL COUNT(AUTO) 3.89 MIL/uL (4.00-5.20); RED CELL DISTRIBUTION WIDTH 14.9 % (11.5-14.5); WHITE BLOOD COUNT (AUTO) 6.8 K/uL (4.5-11.0)
[2017-01-05 07:19] LABS: CREATININE 0.98 mg/dL (0.60-1.30); MAGNESIUM 1.8 mg/dL (1.80-2.40); POTASSIUM 4.4 mmol/L (3.5-5.1)
[2017-01-05] MEDS: OMEPRAZOLE 20 MG CAPSULE PO SCH (08:16)
[2017-01-05] MEDS: CARBAMIDE PEROXIDE 6.5% 15 ML OTIC SOLUTION AU SCH ×2 (08:16→16:09)
[2017-01-05] MEDS: DICLOFENAC SODIUM 1% 100 GM GEL [4GM] TP SCH ×2 (08:16→16:09)
[2017-01-05] MEDS: LITHIUM CARBONATE 300 MG CAPSULE PO SCH ×2 (08:17→16:09)
[2017-01-05] MEDS: MAGNESIUM OXIDE 400 MG TABLET PO SCH ×2 (08:19→16:09)
[2017-01-05 08:56] LABS: EOSINOPHILS % (MANUAL) 1 % (1-6); LYMPHOCYTES % (MANUAL) 21 % (22-44); RBC MORPHOLOGY COMMENT NORMAL RBC MORPH; TOTAL CELLS COUNTED 100
[2017-01-05 09:00] VITALS: BP 115/77
[2017-01-05 11:13] VITALS: BP 124/79
[2017-01-05] MEDS: IBUPROFEN 600 MG TABLET PO PRN (11:13)
[2017-01-05 12:13] VITALS: BP 124/69
[2017-01-05] MEDS: LORazepam 2 MG TABLET PO PRN (16:10)
[2017-01-05 17:13] VITALS: BP 109/60
[2017-01-05] MEDS: AMITRIPTYLINE HCL 75 MG TABLET PO SCH (20:20)
[2017-01-05] MEDS: HALOPERIDOL 5 MG TABLET PO PRN (20:23)
[2017-01-06] MEDS: LORazepam 2 MG TABLET PO PRN ×2 (02:00→15:49)
[2017-01-06] MEDS: HALOPERIDOL 5 MG TABLET PO PRN ×2 (02:00→20:15)
[2017-01-06 03:18] VITALS: BP 98/70
[2017-01-06] MEDS: LITHIUM CARBONATE 300 MG CAPSULE PO SCH ×2 (08:57→15:49)
[2017-01-06] MEDS: MAGNESIUM OXIDE 400 MG TABLET PO SCH ×2 (08:57→15:52)
[2017-01-06] MEDS: OMEPRAZOLE 20 MG CAPSULE PO SCH (08:57)
[2017-01-06] MEDS: CARBAMIDE PEROXIDE 6.5% 15 ML OTIC SOLUTION AU SCH ×2 (08:58→15:49)
[2017-01-06] MEDS: DICLOFENAC SODIUM 1% 100 GM GEL [4GM] TP SCH ×2 (08:58→15:49)
[2017-01-06 10:55] VITALS: BP 116/71
[2017-01-06 16:26] VITALS: BP 109/71
[2017-01-06] MEDS: AMITRIPTYLINE HCL 75 MG TABLET PO SCH (20:14)
[2017-01-07] MEDS: CARBAMIDE PEROXIDE 6.5% 15 ML OTIC SOLUTION AU SCH ×2 (09:00→15:59)
[2017-01-07] MEDS: DICLOFENAC SODIUM 1% 100 GM GEL [4GM] TP SCH ×2 (09:00→15:59)
[2017-01-07] MEDS: OMEPRAZOLE 20 MG CAPSULE PO SCH (09:20)
[2017-01-07] MEDS: MAGNESIUM OXIDE 400 MG TABLET PO SCH ×2 (09:20→15:59)
[2017-01-07] MEDS: LITHIUM CARBONATE 300 MG CAPSULE PO SCH ×2 (09:20→15:59)
[2017-01-07 09:23] VITALS: BP 132/92
[2017-01-07] MEDS: IBUPROFEN 600 MG TABLET PO PRN (09:23)
[2017-01-07] MEDS ORDERED: KETOROLAC TROMETHAMINE 60 MG/2 ML VIAL IM ONE (13:00)
[2017-01-07 16:49] VITALS: BP 123/87
[2017-01-07 16:50] VITALS: BP 123/73
[2017-01-07] MEDS: AMITRIPTYLINE HCL 75 MG TABLET PO SCH (20:18)
[2017-01-07] MEDS: HALOPERIDOL 5 MG TABLET PO PRN (22:00)
[2017-01-07] MEDS: LORazepam 2 MG TABLET PO PRN (22:00)
[2017-01-08 01:38] VITALS: BP 113/80
[2017-01-08] MEDS: MELOXICAM 7.5 MG TABLET PO SCH (06:52)
[2017-01-08 08:00] VITALS: BP 100/75
[2017-01-08] MEDS: CARBAMIDE PEROXIDE 6.5% 15 ML OTIC SOLUTION AU SCH ×2 (09:00→16:33)
[2017-01-08] MEDS: MAGNESIUM OXIDE 400 MG TABLET PO SCH ×2 (09:18→16:31)
[2017-01-08] MEDS: OMEPRAZOLE 20 MG CAPSULE PO SCH (09:18)
[2017-01-08] MEDS: LITHIUM CARBONATE 300 MG CAPSULE PO SCH ×2 (09:18→16:31)
[2017-01-08] MEDS: DICLOFENAC SODIUM 1% 100 GM GEL [4GM] TP SCH ×2 (09:25→16:33)
[2017-01-08 16:30] VITALS: BP 111/60
[2017-01-08] MEDS: AMITRIPTYLINE HCL 75 MG TABLET PO SCH (20:28)
[2017-01-08] MEDS: HALOPERIDOL 5 MG TABLET PO PRN (20:29)
[2017-01-09 02:17] VITALS: BP 99/70
[2017-01-09] MEDS: MELOXICAM 7.5 MG TABLET PO SCH (07:13)
[2017-01-09 08:10] VITALS: BP 123/80
[2017-01-09] MEDS: OMEPRAZOLE 20 MG CAPSULE PO SCH (08:16)
[2017-01-09] MEDS: MAGNESIUM OXIDE 400 MG TABLET PO SCH ×2 (08:17→16:25)
[2017-01-09] MEDS: LITHIUM CARBONATE 300 MG CAPSULE PO SCH ×2 (08:17→16:25)
[2017-01-09] MEDS: DICLOFENAC SODIUM 1% 100 GM GEL [4GM] TP SCH ×2 (08:17→16:25)
[2017-01-09] MEDS: CARBAMIDE PEROXIDE 6.5% 15 ML OTIC SOLUTION AU SCH ×2 (08:24→16:25)
[2017-01-09 16:25] VITALS: BP 104/79
[2017-01-09] MEDS: ACETAMINOPHEN 325 MG TABLET PO PRN (16:25)
[2017-01-09] MEDS: AMITRIPTYLINE HCL 75 MG TABLET PO SCH (20:26)
[2017-01-09] MEDS: HALOPERIDOL 5 MG TABLET PO PRN (20:28)
[2017-01-10] MEDS: LORazepam 2 MG TABLET PO PRN (03:33)
[2017-01-10] MEDS: HALOPERIDOL 5 MG TABLET PO PRN ×2 (03:33→20:30)
[2017-01-10] MEDS: MELOXICAM 7.5 MG TABLET PO SCH (07:05)
[2017-01-10 08:10] VITALS: BP 115/60
[2017-01-10] MEDS: MAGNESIUM OXIDE 400 MG TABLET PO SCH ×2 (08:37→16:54)
[2017-01-10] MEDS: LITHIUM CARBONATE 300 MG CAPSULE PO SCH ×2 (08:37→16:54)
[2017-01-10] MEDS: OMEPRAZOLE 20 MG CAPSULE PO SCH (08:37)
[2017-01-10] MEDS: DICLOFENAC SODIUM 1% 100 GM GEL [4GM] TP SCH ×2 (08:38→16:55)
[2017-01-10] MEDS: CARBAMIDE PEROXIDE 6.5% 15 ML OTIC SOLUTION AU SCH ×2 (08:38→16:54)
[2017-01-10 12:52] VITALS: BP 123/67
[2017-01-10] MEDS: ACETAMINOPHEN 325 MG TABLET PO PRN ×2 (12:52→16:58)
[2017-01-10 16:58] VITALS: BP 114/61
[2017-01-10] MEDS: AMITRIPTYLINE HCL 75 MG TABLET PO SCH (20:28)
[2017-01-11 01:20] VITALS: BP 121/86
[2017-01-11] MEDS: LORazepam 2 MG TABLET PO PRN (01:26)
[2017-01-11] MEDS: HALOPERIDOL 5 MG TABLET PO PRN ×2 (01:26→20:04)
[2017-01-11] MEDS: MELOXICAM 7.5 MG TABLET PO SCH (06:56)
[2017-01-11] MEDS: OMEPRAZOLE 20 MG CAPSULE PO SCH (07:45)
[2017-01-11] MEDS: DOCUSATE SODIUM 100 MG CAPSULE PO PRN (07:45)
[2017-01-11] MEDS: MAGNESIUM OXIDE 400 MG TABLET PO SCH (07:46)
[2017-01-11] MEDS: LITHIUM CARBONATE 300 MG CAPSULE PO SCH ×2 (07:46→16:34)
[2017-01-11] MEDS: DICLOFENAC SODIUM 1% 100 GM GEL [4GM] TP SCH ×2 (07:46→16:34)
[2017-01-11] MEDS: CARBAMIDE PEROXIDE 6.5% 15 ML OTIC SOLUTION AU SCH ×2 (07:47→16:34)
[2017-01-11 08:00] VITALS: BP 90/52
[2017-01-11 16:44] VITALS: BP 112/70
[2017-01-11 16:46] VITALS: BP 112/70
[2017-01-11] MEDS: AMITRIPTYLINE HCL 75 MG TABLET PO SCH (20:04)
[2017-01-12] MEDS: LORazepam 2 MG TABLET PO PRN ×2 (01:22→19:48)
[2017-01-12 01:28] VITALS: BP 101/64
[2017-01-12] MEDS: HALOPERIDOL 5 MG TABLET PO PRN (01:33)
[2017-01-12] MEDS: MELOXICAM 7.5 MG TABLET PO SCH (06:35)
[2017-01-12 08:30] VITALS: BP 114/82
[2017-01-12] MEDS: OMEPRAZOLE 20 MG CAPSULE PO SCH (09:06)
[2017-01-12] MEDS: LITHIUM CARBONATE 300 MG CAPSULE PO SCH ×2 (09:06→15:54)
[2017-01-12] MEDS: CARBAMIDE PEROXIDE 6.5% 15 ML OTIC SOLUTION AU SCH ×2 (09:07→15:54)
[2017-01-12] MEDS: DICLOFENAC SODIUM 1% 100 GM GEL [4GM] TP SCH ×2 (09:07→15:54)
[2017-01-12 19:39] VITALS: BP 116/63
[2017-01-12] MEDS: AMITRIPTYLINE HCL 75 MG TABLET PO SCH (21:22)
[2017-01-13 02:15] VITALS: BP 109/67
[2017-01-13] MEDS: ACETAMINOPHEN 325 MG TABLET PO PRN (02:17)
[2017-01-13 04:52] VITALS: BP 134/52
[2017-01-13] MEDS: HALOPERIDOL 5 MG TABLET PO PRN (04:55)
[2017-01-13] MEDS: MELOXICAM 7.5 MG TABLET PO SCH (06:56)
[2017-01-13] MEDS: CARBAMIDE PEROXIDE 6.5% 15 ML OTIC SOLUTION AU SCH ×2 (08:12→16:20)
[2017-01-13] MEDS: OMEPRAZOLE 20 MG CAPSULE PO SCH (08:12)
[2017-01-13] MEDS: DOCUSATE SODIUM 100 MG CAPSULE PO PRN (08:12)
[2017-01-13] MEDS: LITHIUM CARBONATE 300 MG CAPSULE PO SCH ×2 (08:12→16:20)
[2017-01-13] MEDS: DICLOFENAC SODIUM 1% 100 GM GEL [4GM] TP SCH ×2 (08:13→16:20)
[2017-01-13 08:17] VITALS: BP 103/66
[2017-01-13 16:06] VITALS: BP 119/61
[2017-01-13] MEDS: AMITRIPTYLINE HCL 75 MG TABLET PO SCH (20:01)
[2017-01-13] MEDS: TEMAZEPAM 15 MG CAPSULE PO SCH (20:01)
[2017-01-14 04:26] VITALS: BP 110/67
[2017-01-14] MEDS: LORazepam 2 MG TABLET PO PRN ×2 (04:35→21:09)
[2017-01-14] MEDS: MELOXICAM 7.5 MG TABLET PO SCH (07:07)
[2017-01-14] MEDS: CARBAMIDE PEROXIDE 6.5% 15 ML OTIC SOLUTION AU SCH ×2 (08:36→17:56)
[2017-01-14] MEDS: OMEPRAZOLE 20 MG CAPSULE PO SCH (08:38)
[2017-01-14] MEDS: LITHIUM CARBONATE 300 MG CAPSULE PO SCH ×2 (08:38→16:43)
[2017-01-14] MEDS: DICLOFENAC SODIUM 1% 100 GM GEL [4GM] TP SCH ×2 (08:38→16:45)
[2017-01-14 10:00] VITALS: BP 103/66
[2017-01-14 17:03] VITALS: BP 123/74
[2017-01-14] MEDS: TEMAZEPAM 15 MG CAPSULE PO SCH (21:08)
[2017-01-14] MEDS: HALOPERIDOL 5 MG TABLET PO PRN (21:08)
[2017-01-14] MEDS: AMITRIPTYLINE HCL 75 MG TABLET PO SCH (21:08)
[2017-01-15] MEDS: LORazepam 2 MG TABLET PO PRN (05:25)
[2017-01-15 05:43] VITALS: BP 118/76
[2017-01-15] MEDS: MELOXICAM 7.5 MG TABLET PO SCH (06:43)
[2017-01-15 08:19] VITALS: BP 118/61
[2017-01-15] MEDS: CARBAMIDE PEROXIDE 6.5% 15 ML OTIC SOLUTION AU SCH ×2 (08:35→16:59)
[2017-01-15] MEDS: OMEPRAZOLE 20 MG CAPSULE PO SCH (08:36)
[2017-01-15] MEDS: DICLOFENAC SODIUM 1% 100 GM GEL [4GM] TP SCH ×2 (08:36→16:59)
[2017-01-15] MEDS: LITHIUM CARBONATE 300 MG CAPSULE PO SCH ×2 (08:36→17:00)
[2017-01-15] MEDS: ARIPiprazole ER SUSPENSION 400 MG PRE-FILLED DUAL CHAMBER SYRINGE IM SCH (09:07)
[2017-01-15 09:18] VITALS: BP 110/50
[2017-01-15 17:58] VITALS: BP 123/74
[2017-01-15] MEDS: TEMAZEPAM 15 MG CAPSULE PO SCH (20:07)
[2017-01-15] MEDS: AMITRIPTYLINE HCL 75 MG TABLET PO SCH (20:07)
[2017-01-16] MEDS: LORazepam 2 MG TABLET PO PRN ×3 (02:10→20:54)
[2017-01-16] MEDS: HALOPERIDOL 5 MG TABLET PO PRN ×2 (02:10→11:02)
[2017-01-16 02:12] VITALS: BP 110/62
[2017-01-16] MEDS: MELOXICAM 7.5 MG TABLET PO SCH (06:38)
[2017-01-16] MEDS: LITHIUM CARBONATE 300 MG CAPSULE PO SCH ×2 (08:04→17:17)
[2017-01-16] MEDS: CARBAMIDE PEROXIDE 6.5% 15 ML OTIC SOLUTION AU SCH ×2 (08:04→17:18)
[2017-01-16] MEDS: OMEPRAZOLE 20 MG CAPSULE PO SCH (08:04)
[2017-01-16] MEDS: DICLOFENAC SODIUM 1% 100 GM GEL [4GM] TP SCH ×2 (08:04→17:17)
[2017-01-16 08:30] VITALS: BP 111/77
[2017-01-16 16:00] VITALS: BP 123/74
[2017-01-16] MEDS: AMITRIPTYLINE HCL 75 MG TABLET PO SCH (20:06)
[2017-01-16] MEDS: TEMAZEPAM 15 MG CAPSULE PO SCH (20:06)
[2017-01-17 06:27] VITALS: BP 100/62
[2017-01-17] MEDS: MELOXICAM 7.5 MG TABLET PO SCH (06:35)
[2017-01-17] MEDS: OMEPRAZOLE 20 MG CAPSULE PO SCH (08:32)
[2017-01-17] MEDS: LITHIUM CARBONATE 300 MG CAPSULE PO SCH ×2 (08:33→16:12)
[2017-01-17] MEDS: DICLOFENAC SODIUM 1% 100 GM GEL [4GM] TP SCH ×2 (08:33→16:12)
[2017-01-17] MEDS: CARBAMIDE PEROXIDE 6.5% 15 ML OTIC SOLUTION AU SCH ×2 (08:33→16:13)
[2017-01-17 08:58] VITALS: BP 98/69
[2017-01-17] MEDS: LORazepam 2 MG TABLET PO PRN ×2 (09:05→14:27)
[2017-01-17] MEDS: HALOPERIDOL 5 MG TABLET PO PRN ×2 (09:05→16:16)
[2017-01-17 16:40] VITALS: BP 108/66
[2017-01-17] MEDS: TEMAZEPAM 15 MG CAPSULE PO SCH (20:29)
[2017-01-17] MEDS: AMITRIPTYLINE HCL 75 MG TABLET PO SCH (20:29)
[2017-01-18] MEDS: LORazepam 2 MG TABLET PO PRN (00:37)
[2017-01-18] MEDS: HALOPERIDOL 5 MG TABLET PO PRN (00:37)
[2017-01-18 05:52] VITALS: BP 113/62
[2017-01-18] MEDS: MELOXICAM 7.5 MG TABLET PO SCH (06:46)
[2017-01-18 08:38] VITALS: BP 103/69
[2017-01-18] MEDS: DICLOFENAC SODIUM 1% 100 GM GEL [4GM] TP SCH ×2 (09:05→16:47)
[2017-01-18] MEDS: LITHIUM CARBONATE 300 MG CAPSULE PO SCH ×2 (09:05→16:47)
[2017-01-18] MEDS: OMEPRAZOLE 20 MG CAPSULE PO SCH (09:05)
[2017-01-18] MEDS: CARBAMIDE PEROXIDE 6.5% 15 ML OTIC SOLUTION AU SCH ×2 (09:05→16:47)
[2017-01-18 16:31] VITALS: BP 91/74
[2017-01-18] MEDS: TEMAZEPAM 15 MG CAPSULE PO SCH (20:24)
[2017-01-18] MEDS: AMITRIPTYLINE HCL 75 MG TABLET PO SCH (20:24)
[2017-01-19] MEDS: HALOPERIDOL 5 MG TABLET PO PRN (05:37)
[2017-01-19 05:39] VITALS: BP 100/75
[2017-01-19] MEDS: MELOXICAM 7.5 MG TABLET PO SCH (08:15)
[2017-01-19] MEDS: DOCUSATE SODIUM 100 MG CAPSULE PO PRN (08:15)
[2017-01-19] MEDS: OMEPRAZOLE 20 MG CAPSULE PO SCH (08:16)
[2017-01-19] MEDS: LITHIUM CARBONATE 300 MG CAPSULE PO SCH ×2 (08:16→16:31)
[2017-01-19] MEDS: DICLOFENAC SODIUM 1% 100 GM GEL [4GM] TP SCH ×2 (08:16→16:30)
[2017-01-19] MEDS: CARBAMIDE PEROXIDE 6.5% 15 ML OTIC SOLUTION AU SCH ×2 (08:52→16:31)
[2017-01-19 10:59] VITALS: BP 108/64
[2017-01-19 17:13] VITALS: BP 129/81
[2017-01-19] MEDS: TEMAZEPAM 15 MG CAPSULE PO SCH (20:41)
[2017-01-19] MEDS: AMITRIPTYLINE HCL 75 MG TABLET PO SCH (20:41)
[2017-01-20] MEDS: LORazepam 2 MG TABLET PO PRN ×2 (02:34→13:53)
[2017-01-20 02:38] VITALS: BP 116/79
[2017-01-20] MEDS: MELOXICAM 7.5 MG TABLET PO SCH (07:05)
[2017-01-20 08:00] VITALS: BP 130/77
[2017-01-20] MEDS: LITHIUM CARBONATE 300 MG CAPSULE PO SCH ×2 (09:02→16:35)
[2017-01-20] MEDS: OMEPRAZOLE 20 MG CAPSULE PO SCH (09:02)
[2017-01-20] MEDS: DICLOFENAC SODIUM 1% 100 GM GEL [4GM] TP SCH ×2 (09:03→16:35)
[2017-01-20] MEDS: CARBAMIDE PEROXIDE 6.5% 15 ML OTIC SOLUTION AU SCH ×2 (09:03→16:35)
[2017-01-20 16:50] VITALS: BP 104/69
[2017-01-20] MEDS: AMITRIPTYLINE HCL 75 MG TABLET PO SCH (20:47)
[2017-01-20] MEDS: TEMAZEPAM 15 MG CAPSULE PO SCH (20:47)
[2017-01-21] VITALS: BP 111/68
[2017-01-21] MEDS: LORazepam 2 MG TABLET PO PRN ×2 (00:06→18:59)
[2017-01-21] MEDS: HALOPERIDOL 5 MG TABLET PO PRN ×2 (00:07→18:59)
[2017-01-21] MEDS: ACETAMINOPHEN 325 MG TABLET PO PRN (03:57)
[2017-01-21 08:00] VITALS: BP 106/69
[2017-01-21] MEDS: OMEPRAZOLE 20 MG CAPSULE PO SCH (08:55)
[2017-01-21] MEDS: MELOXICAM 7.5 MG TABLET PO SCH (08:55)
[2017-01-21] MEDS: DICLOFENAC SODIUM 1% 100 GM GEL [4GM] TP SCH ×2 (08:55→17:31)
[2017-01-21] MEDS: LITHIUM CARBONATE 300 MG CAPSULE PO SCH ×2 (08:55→17:31)
[2017-01-21 19:24] VITALS: BP 128/66
[2017-01-21] MEDS: TEMAZEPAM 15 MG CAPSULE PO SCH (21:55)
[2017-01-21] MEDS: AMITRIPTYLINE HCL 75 MG TABLET PO SCH (21:55)
[2017-01-22 01:10] VITALS: BP 125/81
[2017-01-22] MEDS: ACETAMINOPHEN 325 MG TABLET PO PRN ×2 (01:15→18:11)
[2017-01-22 01:35] VITALS: BP 114/77
[2017-01-22] MEDS: LORazepam 2 MG TABLET PO PRN ×2 (05:00→21:02)
[2017-01-22] MEDS: MELOXICAM 7.5 MG TABLET PO SCH (07:14)
[2017-01-22] MEDS: OMEPRAZOLE 20 MG CAPSULE PO SCH (09:13)
[2017-01-22] MEDS: LITHIUM CARBONATE 300 MG CAPSULE PO SCH ×2 (09:13→17:24)
[2017-01-22] MEDS: DICLOFENAC SODIUM 1% 100 GM GEL [4GM] TP SCH ×2 (09:14→17:00)
[2017-01-22 09:37] VITALS: BP 152/78
[2017-01-22 18:12] VITALS: BP 140/81
[2017-01-22] MEDS: TEMAZEPAM 15 MG CAPSULE PO SCH (20:58)
[2017-01-22] MEDS: AMITRIPTYLINE HCL 75 MG TABLET PO SCH (20:58)
[2017-01-23] MEDS: MELOXICAM 7.5 MG TABLET PO SCH (07:01)
[2017-01-23 08:26] VITALS: BP 102/73
[2017-01-23] MEDS: LITHIUM CARBONATE 300 MG CAPSULE PO SCH ×2 (08:31→16:23)
[2017-01-23] MEDS: DICLOFENAC SODIUM 1% 100 GM GEL [4GM] TP SCH ×2 (08:31→16:23)
[2017-01-23] MEDS: OMEPRAZOLE 20 MG CAPSULE PO SCH (08:31)
[2017-01-23] MEDS: HALOPERIDOL 5 MG TABLET PO PRN (09:04)
[2017-01-23] MEDS: LORazepam 2 MG TABLET PO PRN ×2 (09:04→21:26)
[2017-01-23 13:48] VITALS: BP 121/73
[2017-01-23] MEDS: ACETAMINOPHEN 325 MG TABLET PO PRN (13:48)
[2017-01-23 16:50] VITALS: BP 116/72
[2017-01-23] MEDS: AMITRIPTYLINE HCL 75 MG TABLET PO SCH (20:13)
[2017-01-23] MEDS: TEMAZEPAM 15 MG CAPSULE PO SCH (20:13)
[2017-01-24] MEDS: HALOPERIDOL 5 MG TABLET PO PRN (02:04)
[2017-01-24] MEDS: LORazepam 2 MG TABLET PO PRN ×2 (02:04→20:09)
[2017-01-24 02:05] VITALS: BP 115/66
[2017-01-24] MEDS: MELOXICAM 7.5 MG TABLET PO SCH (07:08)
[2017-01-24 08:00] VITALS: BP 122/72
[2017-01-24] MEDS: OMEPRAZOLE 20 MG CAPSULE PO SCH (08:37)
[2017-01-24] MEDS: LITHIUM CARBONATE 300 MG CAPSULE PO SCH ×2 (08:37→16:32)
[2017-01-24] MEDS: DICLOFENAC SODIUM 1% 100 GM GEL [4GM] TP SCH ×2 (08:38→16:32)
[2017-01-24 17:17] VITALS: BP 107/60
[2017-01-24] MEDS: TEMAZEPAM 15 MG CAPSULE PO SCH (20:08)
[2017-01-24] MEDS: AMITRIPTYLINE HCL 75 MG TABLET PO SCH (20:08)
[2017-01-25] MEDS: LORazepam 2 MG TABLET PO PRN (03:59)
[2017-01-25 04:01] VITALS: BP 125/85
[2017-01-25] MEDS: MELOXICAM 7.5 MG TABLET PO SCH (07:10)
[2017-01-25] MEDS: LITHIUM CARBONATE 300 MG CAPSULE PO SCH ×2 (08:47→16:24)
[2017-01-25] MEDS: OMEPRAZOLE 20 MG CAPSULE PO SCH (08:47)
[2017-01-25] MEDS: DICLOFENAC SODIUM 1% 100 GM GEL [4GM] TP SCH ×2 (08:48→18:34)
[2017-01-25 10:12] VITALS: BP 98/67
[2017-01-25 16:39] VITALS: BP 117/77
[2017-01-25] MEDS: TEMAZEPAM 15 MG CAPSULE PO SCH (20:25)
[2017-01-25] MEDS: AMITRIPTYLINE HCL 75 MG TABLET PO SCH (20:26)
[2017-01-26 00:30] VITALS: BP 111/74
[2017-01-26] MEDS: MELOXICAM 7.5 MG TABLET PO SCH (06:56)
[2017-01-26] MEDS: LITHIUM CARBONATE 300 MG CAPSULE PO SCH ×2 (08:20→16:44)
[2017-01-26] MEDS: OMEPRAZOLE 20 MG CAPSULE PO SCH (08:20)
[2017-01-26] MEDS: DOCUSATE SODIUM 100 MG CAPSULE PO PRN (08:21)
[2017-01-26] MEDS: DICLOFENAC SODIUM 1% 100 GM GEL [4GM] TP SCH ×2 (08:21→16:44)
[2017-01-26 10:08] VITALS: BP 108/71
[2017-01-26 19:48] VITALS: BP 125/70
[2017-01-26] MEDS: TEMAZEPAM 15 MG CAPSULE PO SCH (20:05)
[2017-01-26] MEDS: AMITRIPTYLINE HCL 75 MG TABLET PO SCH (20:06)
[2017-01-27 00:20] VITALS: BP 125/78
[2017-01-27] MEDS: ACETAMINOPHEN 325 MG TABLET PO PRN ×2 (00:20→16:15)
[2017-01-27] MEDS: LORazepam 2 MG TABLET PO PRN ×2 (00:21→19:13)
[2017-01-27] MEDS: HALOPERIDOL 5 MG TABLET PO PRN (04:27)
[2017-01-27] MEDS: MELOXICAM 7.5 MG TABLET PO SCH (07:09)
[2017-01-27] MEDS: OMEPRAZOLE 20 MG CAPSULE PO SCH (09:23)
[2017-01-27] MEDS: LITHIUM CARBONATE 300 MG CAPSULE PO SCH ×2 (09:23→16:11)
[2017-01-27] MEDS: DICLOFENAC SODIUM 1% 100 GM GEL [4GM] TP SCH ×2 (09:25→16:11)
[2017-01-27 10:30] VITALS: BP 119/74
[2017-01-27 16:15] VITALS: BP 116/70
[2017-01-27] MEDS: AMITRIPTYLINE HCL 75 MG TABLET PO SCH (20:15)
[2017-01-27] MEDS: TEMAZEPAM 15 MG CAPSULE PO SCH (20:15)
[2017-01-28 05:19] VITALS: BP 116/81
[2017-01-28] MEDS: MELOXICAM 7.5 MG TABLET PO SCH (07:03)
[2017-01-28 08:42] VITALS: BP 108/66
[2017-01-28] MEDS: OMEPRAZOLE 20 MG CAPSULE PO SCH (08:54)
[2017-01-28] MEDS: LITHIUM CARBONATE 300 MG CAPSULE PO SCH ×2 (08:54→16:25)
[2017-01-28] MEDS: DICLOFENAC SODIUM 1% 100 GM GEL [4GM] TP SCH ×2 (08:55→16:25)
[2017-01-28] MEDS: DOCUSATE SODIUM 100 MG CAPSULE PO PRN (10:14)
[2017-01-28 12:38] VITALS: BP 136/72
[2017-01-28] MEDS: ACETAMINOPHEN 325 MG TABLET PO PRN (12:38)
[2017-01-28 18:05] VITALS: BP 116/71
[2017-01-28] MEDS: TEMAZEPAM 15 MG CAPSULE PO SCH (20:15)
[2017-01-28] MEDS: AMITRIPTYLINE HCL 75 MG TABLET PO SCH (20:15)
[2017-01-28] MEDS: LORazepam 2 MG TABLET PO PRN (22:02)
[2017-01-29 04:21] VITALS: BP 117/77
[2017-01-29] MEDS: LORazepam 2 MG TABLET PO PRN ×2 (04:25→22:25)
[2017-01-29] MEDS: MELOXICAM 7.5 MG TABLET PO SCH (06:54)
[2017-01-29 08:03] VITALS: BP 111/74
[2017-01-29] MEDS: LITHIUM CARBONATE 300 MG CAPSULE PO SCH ×2 (08:16→17:22)
[2017-01-29] MEDS: OMEPRAZOLE 20 MG CAPSULE PO SCH (08:17)
[2017-01-29] MEDS: DICLOFENAC SODIUM 1% 100 GM GEL [4GM] TP SCH ×2 (08:17→17:22)
[2017-01-29 16:56] VITALS: BP 122/75
[2017-01-29] MEDS: ACETAMINOPHEN 325 MG TABLET PO PRN (20:19)
[2017-01-29] MEDS: AMITRIPTYLINE HCL 75 MG TABLET PO SCH (20:29)
[2017-01-29] MEDS: TEMAZEPAM 15 MG CAPSULE PO SCH (20:29)
[2017-01-29 22:26] VITALS: BP 119/67
[2017-01-30 01:24] VITALS: BP 121/70
[2017-01-30] MEDS: MELOXICAM 7.5 MG TABLET PO SCH ×2 (07:01→07:02)
[2017-01-30 08:00] VITALS: BP 129/69
[2017-01-30] MEDS: LITHIUM CARBONATE 300 MG CAPSULE PO SCH ×2 (08:20→16:13)
[2017-01-30] MEDS: OMEPRAZOLE 20 MG CAPSULE PO SCH (08:20)
[2017-01-30] MEDS: DICLOFENAC SODIUM 1% 100 GM GEL [4GM] TP SCH ×2 (08:20→16:20)
[2017-01-30 09:48] VITALS: BP 125/78
[2017-01-30] MEDS: ACETAMINOPHEN 325 MG TABLET PO PRN ×2 (09:48→16:14)
[2017-01-30 10:48] VITALS: BP 121/75
[2017-01-30 16:10] VITALS: BP 130/74
[2017-01-30 17:15] VITALS: BP 128/76
[2017-01-30] MEDS: LORazepam 2 MG TABLET PO PRN (18:25)
[2017-01-30] MEDS: AMITRIPTYLINE HCL 75 MG TABLET PO SCH (21:25)
[2017-01-30] MEDS: TEMAZEPAM 15 MG CAPSULE PO SCH (21:25)
[2017-01-30] MEDS: HALOPERIDOL 5 MG TABLET PO PRN (21:25)
[2017-01-31] MEDS: LORazepam 2 MG TABLET PO PRN ×2 (01:16→20:18)
[2017-01-31 01:17] VITALS: BP 100/67
[2017-01-31] MEDS: HALOPERIDOL 5 MG TABLET PO PRN (02:17)
[2017-01-31] MEDS: MELOXICAM 7.5 MG TABLET PO SCH (07:00)
[2017-01-31] MEDS: OMEPRAZOLE 20 MG CAPSULE PO SCH (08:26)
[2017-01-31] MEDS: LITHIUM CARBONATE 300 MG CAPSULE PO SCH ×2 (08:26→16:40)
[2017-01-31] MEDS: DICLOFENAC SODIUM 1% 100 GM GEL [4GM] TP SCH ×2 (08:26→16:40)
[2017-01-31 08:46] VITALS: BP 108/71
[2017-01-31 17:55] VITALS: BP 102/78
[2017-01-31] MEDS: AMITRIPTYLINE HCL 75 MG TABLET PO SCH (20:14)
[2017-01-31 20:16] VITALS: BP 117/74
[2017-01-31] MEDS: TEMAZEPAM 15 MG CAPSULE PO SCH (20:18)
[2017-02-01 01:40] VITALS: BP 124/78
[2017-02-01] MEDS: HALOPERIDOL 5 MG TABLET PO PRN (01:42)
[2017-02-01 04:40] VITALS: BP 107/70
[2017-02-01] MEDS: ACETAMINOPHEN 325 MG TABLET PO PRN ×2 (04:42→16:20)
[2017-02-01 04:57] VITALS: BP 107/70
[2017-02-01] MEDS: MELOXICAM 7.5 MG TABLET PO SCH (07:04)
[2017-02-01] MEDS: DICLOFENAC SODIUM 1% 100 GM GEL [4GM] TP SCH ×2 (08:08→16:17)
[2017-02-01] MEDS: OMEPRAZOLE 20 MG CAPSULE PO SCH (08:08)
[2017-02-01] MEDS: LITHIUM CARBONATE 300 MG CAPSULE PO SCH ×2 (08:08→16:17)
[2017-02-01 08:14] VITALS: BP 124/65
[2017-02-01 16:20] VITALS: BP 125/72
[2017-02-01 16:36] VITALS: BP 129/79
[2017-02-01] MEDS: LORazepam 2 MG TABLET PO PRN (17:58)
[2017-02-01] MEDS: AMITRIPTYLINE HCL 75 MG TABLET PO SCH (20:21)
[2017-02-01] MEDS: TEMAZEPAM 15 MG CAPSULE PO SCH (20:21)
[2017-02-02 03:07] VITALS: BP 107/71
[2017-02-02] MEDS: MELOXICAM 7.5 MG TABLET PO SCH (07:01)
[2017-02-02] MEDS: DOCUSATE SODIUM 100 MG CAPSULE PO PRN (09:09)
[2017-02-02] MEDS: LITHIUM CARBONATE 300 MG CAPSULE PO SCH ×2 (09:10→16:09)
[2017-02-02] MEDS: DICLOFENAC SODIUM 1% 100 GM GEL [4GM] TP SCH ×2 (09:10→16:09)
[2017-02-02] MEDS: OMEPRAZOLE 20 MG CAPSULE PO SCH (09:10)
[2017-02-02 10:40] VITALS: BP 105/73
[2017-02-02 12:29] VITALS: BP 118/76
[2017-02-02] MEDS: ACETAMINOPHEN 325 MG TABLET PO PRN (12:29)
[2017-02-02 13:29] VITALS: BP 122/65
[2017-02-02 16:14] VITALS: BP 131/77
[2017-02-02] MEDS: HALOPERIDOL 5 MG TABLET PO PRN ×2 (16:34→22:44)
[2017-02-02] MEDS: LORazepam 2 MG TABLET PO PRN (18:14)
[2017-02-02] MEDS: AMITRIPTYLINE HCL 75 MG TABLET PO SCH (20:12)
[2017-02-02] MEDS: TEMAZEPAM 15 MG CAPSULE PO SCH (20:12)
[2017-02-03 01:05] VITALS: BP 128/86
[2017-02-03] MEDS: MELOXICAM 7.5 MG TABLET PO SCH (07:02)
[2017-02-03] MEDS: LITHIUM CARBONATE 300 MG CAPSULE PO SCH ×2 (08:10→15:56)
[2017-02-03] MEDS: OMEPRAZOLE 20 MG CAPSULE PO SCH (08:10)
[2017-02-03] MEDS: DICLOFENAC SODIUM 1% 100 GM GEL [4GM] TP SCH ×2 (08:11→15:56)
[2017-02-03 09:16] VITALS: BP 122/81
[2017-02-03] MEDS: ACETAMINOPHEN 325 MG TABLET PO PRN (13:12)
[2017-02-03] MEDS: HALOPERIDOL 5 MG TABLET PO PRN (15:56)
[2017-02-03] MEDS: DOCUSATE SODIUM 100 MG CAPSULE PO PRN (15:56)
[2017-02-03] MEDS: TEMAZEPAM 15 MG CAPSULE PO SCH (20:07)
[2017-02-03] MEDS: AMITRIPTYLINE HCL 75 MG TABLET PO SCH (20:07)
[2017-02-03 20:34] VITALS: BP 119/83
[2017-02-03] MEDS: LORazepam 2 MG TABLET PO PRN (21:50)
[2017-02-04 02:18] VITALS: BP 115/76
[2017-02-04] MEDS: LORazepam 2 MG TABLET PO PRN (03:09)
[2017-02-04] MEDS: MELOXICAM 7.5 MG TABLET PO SCH (07:03)
[2017-02-04] MEDS: OMEPRAZOLE 20 MG CAPSULE PO SCH (08:03)
[2017-02-04] MEDS: DICLOFENAC SODIUM 1% 100 GM GEL [4GM] TP SCH ×2 (08:04→16:24)
[2017-02-04] MEDS: LITHIUM CARBONATE 300 MG CAPSULE PO SCH ×2 (08:04→16:24)
[2017-02-04 08:14] VITALS: BP 114/71
[2017-02-04 18:57] VITALS: BP 129/63
[2017-02-04] MEDS: ACETAMINOPHEN 325 MG TABLET PO PRN (18:57)
[2017-02-04] MEDS: HALOPERIDOL 5 MG TABLET PO PRN (18:57)
[2017-02-04] MEDS: TEMAZEPAM 15 MG CAPSULE PO SCH (20:12)
[2017-02-04] MEDS: AMITRIPTYLINE HCL 75 MG TABLET PO SCH (20:13)
[2017-02-05 01:11] VITALS: BP 109/57
[2017-02-05 02:24] VITALS: BP 106/60
[2017-02-05] MEDS: ACETAMINOPHEN 325 MG TABLET PO PRN ×2 (02:24→13:33)
[2017-02-05] MEDS: LORazepam 2 MG TABLET PO PRN (02:24)
[2017-02-05] MEDS: MELOXICAM 7.5 MG TABLET PO SCH (06:43)
[2017-02-05 06:48] LABS: HEMATOCRIT 36.6 % (36-46); HEMOGLOBIN 12.7 g/dL (12.0-16.0); MEAN CORPUSCULAR HEMOGLOBIN 31.7 pg (26.0-34.0); MEAN CORPUSCULAR HGB CONC 34.6 G/dL (31.0-37.0); MEAN CORPUSCULAR VOLUME 92 fL (80-100); PLATELET COUNT (AUTO) 293 K/uL (150-450); RED CELL DISTRIBUTION WIDTH 13.8 % (11.5-14.5); WHITE BLOOD COUNT (AUTO) 9.2 K/uL (4.5-11.0)
[2017-02-05 07:15] LABS: CALCIUM, TOTAL 9.5 mg/dL (8.8-10.5); CHOL/HDL RATIO 5.4 (3.9-5.7); CREATININE 1.16 mg/dL (0.60-1.30); MAGNESIUM 1.6 mg/dL (1.80-2.40); PHOSPHORUS 4.2 mg/dL (2.5-4.9); POTASSIUM 4.2 mmol/L (3.5-5.1); THYROID STIMULATING HORMONE 9.94 uIU/mL (0.36-3.74)
[2017-02-05] MEDS: DICLOFENAC SODIUM 1% 100 GM GEL [4GM] TP SCH ×2 (08:19→16:09)
[2017-02-05] MEDS: OMEPRAZOLE 20 MG CAPSULE PO SCH (08:19)
[2017-02-05] MEDS: LITHIUM CARBONATE 300 MG CAPSULE PO SCH ×2 (08:19→16:09)
[2017-02-05 08:39] VITALS: BP 113/74
[2017-02-05 09:04] LABS: EOSINOPHILS % (MANUAL) 3 % (1-6); LYMPHOCYTES % (MANUAL) 23 % (22-44); RBC MORPHOLOGY COMMENT NORMAL RBC MORPH; TOTAL CELLS COUNTED 100
[2017-02-05 16:11] VITALS: BP 105/76
[2017-02-05] MEDS: MAGNESIUM OXIDE 400 MG TABLET PO SCH (20:27)
[2017-02-05] MEDS: TEMAZEPAM 15 MG CAPSULE PO SCH (20:31)
[2017-02-05] MEDS: AMITRIPTYLINE HCL 75 MG TABLET PO SCH (21:09)
[2017-02-06 02:50] VITALS: BP 105/75
[2017-02-06] MEDS: ACETAMINOPHEN 325 MG TABLET PO PRN ×2 (02:54→18:03)
[2017-02-06] MEDS: LEVOTHYROXINE SODIUM 25 MCG TABLET PO SCH (07:11)
[2017-02-06] MEDS: MELOXICAM 7.5 MG TABLET PO SCH (07:12)
[2017-02-06] MEDS: LITHIUM CARBONATE 300 MG CAPSULE PO SCH ×2 (08:10→16:27)
[2017-02-06] MEDS: MAGNESIUM OXIDE 400 MG TABLET PO SCH ×2 (08:10→16:27)
[2017-02-06] MEDS: CHOLECALCIFEROL (VIT D3) 1,000 UNITS TABLET PO SCH (08:11)
[2017-02-06] MEDS: DICLOFENAC SODIUM 1% 100 GM GEL [4GM] TP SCH ×2 (08:11→16:28)
[2017-02-06] MEDS: OMEPRAZOLE 20 MG CAPSULE PO SCH (08:12)
[2017-02-06 09:28] VITALS: BP 107/66
[2017-02-06 17:58] VITALS: BP 139/90
[2017-02-06] MEDS: LORazepam 2 MG TABLET PO PRN (18:03)
[2017-02-06] MEDS: HALOPERIDOL 5 MG TABLET PO PRN (18:04)
[2017-02-06] MEDS: AMITRIPTYLINE HCL 75 MG TABLET PO SCH (20:11)
[2017-02-06] MEDS: TEMAZEPAM 15 MG CAPSULE PO SCH (20:12)
[2017-02-07 01:15] VITALS: BP 120/75
[2017-02-07] MEDS: ACETAMINOPHEN 325 MG TABLET PO PRN (01:21)
[2017-02-07] MEDS: MELOXICAM 7.5 MG TABLET PO SCH (07:04)
[2017-02-07] MEDS: LEVOTHYROXINE SODIUM 25 MCG TABLET PO SCH (07:04)
[2017-02-07] MEDS: LITHIUM CARBONATE 300 MG CAPSULE PO SCH ×2 (08:28→16:53)
[2017-02-07] MEDS: MAGNESIUM OXIDE 400 MG TABLET PO SCH ×2 (08:28→16:53)
[2017-02-07] MEDS: CHOLECALCIFEROL (VIT D3) 1,000 UNITS TABLET PO SCH (08:28)
[2017-02-07] MEDS: OMEPRAZOLE 20 MG CAPSULE PO SCH (08:28)
[2017-02-07] MEDS: DICLOFENAC SODIUM 1% 100 GM GEL [4GM] TP SCH ×2 (08:28→16:53)
[2017-02-07] MEDS: LORazepam 2 MG TABLET PO PRN (08:37)
[2017-02-07] MEDS: HALOPERIDOL 5 MG TABLET PO PRN (08:37)
[2017-02-07 09:12] VITALS: BP 106/66
[2017-02-07 16:54] VITALS: BP 116/63
[2017-02-07] MEDS: AMITRIPTYLINE HCL 75 MG TABLET PO SCH (20:05)
[2017-02-07] MEDS: TEMAZEPAM 15 MG CAPSULE PO SCH (20:06)
[2017-02-08 00:18] VITALS: BP 116/68
[2017-02-08] MEDS: ACETAMINOPHEN 325 MG TABLET PO PRN ×2 (00:20→08:17)
[2017-02-08] MEDS: MELOXICAM 7.5 MG TABLET PO SCH (07:11)
[2017-02-08] MEDS: LEVOTHYROXINE SODIUM 25 MCG TABLET PO SCH (07:11)
[2017-02-08] MEDS: MAGNESIUM OXIDE 400 MG TABLET PO SCH ×2 (08:16→16:19)
[2017-02-08] MEDS: OMEPRAZOLE 20 MG CAPSULE PO SCH (08:16)
[2017-02-08] MEDS: CHOLECALCIFEROL (VIT D3) 1,000 UNITS TABLET PO SCH (08:16)
[2017-02-08] MEDS: LITHIUM CARBONATE 300 MG CAPSULE PO SCH ×2 (08:16→16:19)
[2017-02-08] MEDS: DICLOFENAC SODIUM 1% 100 GM GEL [4GM] TP SCH ×2 (08:17→16:20)
[2017-02-08] MEDS: DOCUSATE SODIUM 100 MG CAPSULE PO PRN (08:17)
[2017-02-08 08:30] VITALS: BP 110/69
[2017-02-08 09:33] VITALS: BP 115/69
[2017-02-08 16:30] VITALS: BP 133/77
[2017-02-08] MEDS: TEMAZEPAM 15 MG CAPSULE PO SCH (20:26)
[2017-02-08] MEDS: AMITRIPTYLINE HCL 75 MG TABLET PO SCH (20:26)
[2017-02-09] MEDS: LORazepam 2 MG TABLET PO PRN ×2 (00:06→20:34)
[2017-02-09 00:10] VITALS: BP 115/81
[2017-02-09] MEDS: LEVOTHYROXINE SODIUM 25 MCG TABLET PO SCH (06:31)
[2017-02-09] MEDS: MELOXICAM 7.5 MG TABLET PO SCH (06:32)
[2017-02-09] MEDS: DICLOFENAC SODIUM 1% 100 GM GEL [4GM] TP SCH ×2 (08:32→16:50)
[2017-02-09] MEDS: OMEPRAZOLE 20 MG CAPSULE PO SCH (08:32)
[2017-02-09] MEDS: CHOLECALCIFEROL (VIT D3) 1,000 UNITS TABLET PO SCH (08:32)
[2017-02-09] MEDS: MAGNESIUM OXIDE 400 MG TABLET PO SCH ×2 (08:32→16:50)
[2017-02-09] MEDS: LITHIUM CARBONATE 300 MG CAPSULE PO SCH ×2 (08:32→16:51)
[2017-02-09 08:59] VITALS: BP 126/90
[2017-02-09 17:53] VITALS: BP 124/80
[2017-02-09] MEDS: AMITRIPTYLINE HCL 75 MG TABLET PO SCH (20:34)
[2017-02-09] MEDS: TEMAZEPAM 15 MG CAPSULE PO SCH (20:34)
[2017-02-10 05:00] VITALS: BP 120/80
[2017-02-10] MEDS: LEVOTHYROXINE SODIUM 25 MCG TABLET PO SCH (07:00)
[2017-02-10] MEDS: MELOXICAM 7.5 MG TABLET PO SCH (07:01)
[2017-02-10 09:11] VITALS: BP 109/72
[2017-02-10] MEDS: CHOLECALCIFEROL (VIT D3) 1,000 UNITS TABLET PO SCH (09:15)
[2017-02-10] MEDS: OMEPRAZOLE 20 MG CAPSULE PO SCH (09:16)
[2017-02-10] MEDS: MAGNESIUM OXIDE 400 MG TABLET PO SCH ×2 (09:16→16:44)
[2017-02-10] MEDS: LITHIUM CARBONATE 300 MG CAPSULE PO SCH ×2 (09:16→16:44)
[2017-02-10] MEDS: DICLOFENAC SODIUM 1% 100 GM GEL [4GM] TP SCH ×2 (09:16→16:44)
[2017-02-10 16:54] VITALS: BP 137/71
[2017-02-10] MEDS: AMITRIPTYLINE HCL 75 MG TABLET PO SCH (20:15)
[2017-02-10] MEDS: TEMAZEPAM 15 MG CAPSULE PO SCH (20:15)
[2017-02-10 21:55] VITALS: BP 120/80
[2017-02-10] MEDS: LORazepam 2 MG TABLET PO PRN (21:58)
[2017-02-11 00:35] VITALS: BP 117/79
[2017-02-11] MEDS: ACETAMINOPHEN 325 MG TABLET PO PRN ×3 (00:39→13:24)
[2017-02-11 03:59] VITALS: BP 123/78
[2017-02-11] MEDS: LORazepam 2 MG TABLET PO PRN ×2 (03:59→22:10)
[2017-02-11] MEDS: MELOXICAM 7.5 MG TABLET PO SCH (06:37)
[2017-02-11] MEDS: LEVOTHYROXINE SODIUM 25 MCG TABLET PO SCH (06:37)
[2017-02-11 08:17] VITALS: BP 116/54
[2017-02-11] MEDS: LITHIUM CARBONATE 300 MG CAPSULE PO SCH ×2 (09:16→16:32)
[2017-02-11] MEDS: OMEPRAZOLE 20 MG CAPSULE PO SCH (09:17)
[2017-02-11] MEDS: MAGNESIUM OXIDE 400 MG TABLET PO SCH ×2 (09:17→16:32)
[2017-02-11] MEDS: CHOLECALCIFEROL (VIT D3) 1,000 UNITS TABLET PO SCH (09:17)
[2017-02-11] MEDS: DICLOFENAC SODIUM 1% 100 GM GEL [4GM] TP SCH ×2 (09:19→16:36)
[2017-02-11 18:18] VITALS: BP 114/58
[2017-02-11] MEDS: AMITRIPTYLINE HCL 75 MG TABLET PO SCH (20:14)
[2017-02-11] MEDS: TEMAZEPAM 15 MG CAPSULE PO SCH (20:14)
[2017-02-11 22:08] VITALS: BP 116/72
[2017-02-12] MEDS: ACETAMINOPHEN 325 MG TABLET PO PRN ×2 (04:58→17:05)
[2017-02-12 05:29] VITALS: BP 119/57
[2017-02-12] MEDS: LEVOTHYROXINE SODIUM 25 MCG TABLET PO SCH (06:28)
[2017-02-12] MEDS: MELOXICAM 7.5 MG TABLET PO SCH (06:32)
[2017-02-12] MEDS: MAGNESIUM OXIDE 400 MG TABLET PO SCH ×3 (07:06→17:04)
[2017-02-12 08:30] VITALS: BP 135/80
[2017-02-12] MEDS: LITHIUM CARBONATE 300 MG CAPSULE PO SCH ×2 (08:33→17:04)
[2017-02-12] MEDS: OMEPRAZOLE 20 MG CAPSULE PO SCH (08:33)
[2017-02-12] MEDS: CHOLECALCIFEROL (VIT D3) 1,000 UNITS TABLET PO SCH (08:34)
[2017-02-12] MEDS: DICLOFENAC SODIUM 1% 100 GM GEL [4GM] TP SCH ×2 (08:35→17:06)
[2017-02-12] MEDS: ARIPiprazole ER SUSPENSION 400 MG PRE-FILLED DUAL CHAMBER SYRINGE IM SCH (09:39)
[2017-02-12 16:09] VITALS: BP 128/89
[2017-02-12 17:00] VITALS: BP 122/80
[2017-02-12] MEDS: TEMAZEPAM 15 MG CAPSULE PO SCH (20:08)
[2017-02-12] MEDS: AMITRIPTYLINE HCL 75 MG TABLET PO SCH (20:08)
[2017-02-13 03:40] VITALS: BP 127/77
[2017-02-13] MEDS: ACETAMINOPHEN 325 MG TABLET PO PRN ×2 (04:14→18:48)
[2017-02-13] MEDS: LEVOTHYROXINE SODIUM 25 MCG TABLET PO SCH (06:55)
[2017-02-13] MEDS: MAGNESIUM OXIDE 400 MG TABLET PO SCH ×3 (07:00→17:42)
[2017-02-13] MEDS: MELOXICAM 7.5 MG TABLET PO SCH (07:01)
[2017-02-13] MEDS: CHOLECALCIFEROL (VIT D3) 1,000 UNITS TABLET PO SCH (08:59)
[2017-02-13] MEDS: OMEPRAZOLE 20 MG CAPSULE PO SCH (08:59)
[2017-02-13] MEDS: LITHIUM CARBONATE 300 MG CAPSULE PO SCH ×2 (08:59→16:03)
[2017-02-13] MEDS: DICLOFENAC SODIUM 1% 100 GM GEL [4GM] TP SCH ×2 (08:59→16:02)
[2017-02-13 09:38] VITALS: BP 106/72
[2017-02-13 17:14] VITALS: BP 118/75
[2017-02-13] MEDS: LORazepam 2 MG TABLET PO PRN (18:47)
[2017-02-13 18:49] VITALS: BP 120/78
[2017-02-13] MEDS: AMITRIPTYLINE HCL 75 MG TABLET PO SCH (21:47)
[2017-02-13] MEDS: TEMAZEPAM 15 MG CAPSULE PO SCH (21:48)
[2017-02-14 00:10] VITALS: BP 99/61
[2017-02-14 01:40] VITALS: BP 99/63
[2017-02-14 02:20] VITALS: BP 118/78
[2017-02-14] MEDS: ACETAMINOPHEN 325 MG TABLET PO PRN ×3 (02:32→16:12)
[2017-02-14 03:47] VITALS: BP 110/74
[2017-02-14] MEDS: MELOXICAM 7.5 MG TABLET PO SCH (06:58)
[2017-02-14] MEDS: LEVOTHYROXINE SODIUM 25 MCG TABLET PO SCH (06:58)
[2017-02-14] MEDS: MAGNESIUM OXIDE 400 MG TABLET PO SCH ×3 (06:59→17:53)
[2017-02-14] MEDS: LITHIUM CARBONATE 300 MG CAPSULE PO SCH ×2 (08:36→16:05)
[2017-02-14] MEDS: CHOLECALCIFEROL (VIT D3) 1,000 UNITS TABLET PO SCH (08:36)
[2017-02-14] MEDS: DOCUSATE SODIUM 100 MG CAPSULE PO PRN ×2 (08:36→20:21)
[2017-02-14] MEDS: OMEPRAZOLE 20 MG CAPSULE PO SCH (08:36)
[2017-02-14] MEDS: DICLOFENAC SODIUM 1% 100 GM GEL [4GM] TP SCH ×2 (08:37→16:05)
[2017-02-14 09:54] VITALS: BP 111/65
[2017-02-14 16:23] VITALS: BP 129/86
[2017-02-14] MEDS: LORazepam 2 MG TABLET PO PRN (17:54)
[2017-02-14] MEDS: AMITRIPTYLINE HCL 75 MG TABLET PO SCH (20:08)
[2017-02-14] MEDS: TEMAZEPAM 15 MG CAPSULE PO SCH (20:08)
[2017-02-15 02:45] VITALS: BP 117/80
[2017-02-15] MEDS: ACETAMINOPHEN 325 MG TABLET PO PRN ×3 (02:47→20:34)
[2017-02-15 06:32] LABS: HEMATOCRIT 35.5 % (36-46); HEMOGLOBIN 12.4 g/dL (12.0-16.0); MEAN CORPUSCULAR HGB CONC 34.9 G/dL (31.0-37.0); MEAN CORPUSCULAR VOLUME 92 fL (80-100); PLATELET COUNT (AUTO) 285 K/uL (150-450); RED BLOOD CELL COUNT(AUTO) 3.86 MIL/uL (4.00-5.20); WHITE BLOOD COUNT (AUTO) 7.8 K/uL (4.5-11.0)
[2017-02-15 06:50] LABS: CALCIUM, TOTAL 9.2 mg/dL (8.8-10.5); CREATININE 1.02 mg/dL (0.60-1.30); MAGNESIUM 1.5 mg/dL (1.80-2.40); PHOSPHORUS 4.6 mg/dL (2.5-4.9); POTASSIUM 4.6 mmol/L (3.5-5.1)
[2017-02-15] MEDS: MELOXICAM 7.5 MG TABLET PO SCH (07:10)
[2017-02-15] MEDS: LEVOTHYROXINE SODIUM 25 MCG TABLET PO SCH (07:10)
[2017-02-15] MEDS: MAGNESIUM OXIDE 400 MG TABLET PO SCH ×3 (07:10→16:22)
[2017-02-15] MEDS: LITHIUM CARBONATE 300 MG CAPSULE PO SCH ×2 (09:04→16:22)
[2017-02-15] MEDS: OMEPRAZOLE 20 MG CAPSULE PO SCH (09:04)
[2017-02-15] MEDS: CHOLECALCIFEROL (VIT D3) 1,000 UNITS TABLET PO SCH (09:04)
[2017-02-15 10:37] LABS: EOSINOPHILS % (MANUAL) 2 % (1-6); LYMPHOCYTES % (MANUAL) 26 % (22-44); TOTAL CELLS COUNTED 100
[2017-02-15 10:41] LABS: RBC MORPHOLOGY COMMENT NORMAL RBC MORPH
[2017-02-15] MEDS: DICLOFENAC SODIUM 1% 100 GM GEL [4GM] TP SCH ×2 (11:09→16:23)
[2017-02-15 16:22] VITALS: BP 139/78
[2017-02-15] MEDS: AMITRIPTYLINE HCL 75 MG TABLET PO SCH (20:30)
[2017-02-15] MEDS: TEMAZEPAM 15 MG CAPSULE PO SCH (20:31)
[2017-02-15 20:34] VITALS: BP 139/70
[2017-02-16 03:44] VITALS: BP 140/94
[2017-02-16] MEDS: LORazepam 2 MG TABLET PO PRN ×2 (03:44→16:40)
[2017-02-16] MEDS: HALOPERIDOL 5 MG TABLET PO PRN ×2 (03:44→16:40)
[2017-02-16] MEDS: MELOXICAM 7.5 MG TABLET PO SCH (06:42)
[2017-02-16] MEDS: MAGNESIUM OXIDE 400 MG TABLET PO SCH ×4 (06:42→16:24)
[2017-02-16] MEDS: LEVOTHYROXINE SODIUM 25 MCG TABLET PO SCH (06:42)
[2017-02-16] MEDS: OMEPRAZOLE 20 MG CAPSULE PO SCH (08:11)
[2017-02-16] MEDS: LITHIUM CARBONATE 300 MG CAPSULE PO SCH ×2 (08:11→16:24)
[2017-02-16] MEDS: CHOLECALCIFEROL (VIT D3) 1,000 UNITS TABLET PO SCH (08:12)
[2017-02-16] MEDS: DICLOFENAC SODIUM 1% 100 GM GEL [4GM] TP SCH ×2 (08:12→16:24)
[2017-02-16 09:43] VITALS: BP 129/89
[2017-02-16 17:00] VITALS: BP 134/80
[2017-02-16] MEDS: TEMAZEPAM 15 MG CAPSULE PO SCH (20:10)
[2017-02-16] MEDS: AMITRIPTYLINE HCL 75 MG TABLET PO SCH (20:10)
[2017-02-17 03:30] VITALS: BP 128/77
[2017-02-17] MEDS: LORazepam 2 MG TABLET PO PRN (03:34)
[2017-02-17] MEDS: ACETAMINOPHEN 325 MG TABLET PO PRN (03:35)
[2017-02-17] MEDS: MAGNESIUM OXIDE 400 MG TABLET PO SCH (07:04)
[2017-02-17] MEDS: LEVOTHYROXINE SODIUM 25 MCG TABLET PO SCH (07:04)
[2017-02-17] MEDS: MELOXICAM 7.5 MG TABLET PO SCH (07:05)
[2017-02-17] MEDS ORDERED: DICL2100G TP (07:55)
[2017-02-17] MEDS ORDERED: VITAD1000 PO (07:55)
[2017-02-17] MEDS ORDERED: LEVO25TA9 PO (07:56)
[2017-02-17] MEDS ORDERED: MAGN400T29 PO (07:56)
[2017-02-17] MEDS ORDERED: MELO-107 PO (07:57)
[2017-02-17] MEDS ORDERED: OMEP20 PO (07:57)
[2017-02-17] MEDS ORDERED: TEMA15CA PO (07:57)
[2017-02-17] MEDS: LITHIUM CARBONATE 300 MG CAPSULE PO SCH (08:16)
[2017-02-17] MEDS: OMEPRAZOLE 20 MG CAPSULE PO SCH (08:16)
[2017-02-17] MEDS: CHOLECALCIFEROL (VIT D3) 1,000 UNITS TABLET PO SCH (08:16)
[2017-02-17] MEDS: DICLOFENAC SODIUM 1% 100 GM GEL [4GM] TP SCH (08:16)
[2017-02-17 08:39] VITALS: BP 118/65
== END 2017-02-17 12:00 | DRG 885 ==
LOC: 3EX 20:15
DX: F25.0 Schizoaffective disorder, bipolar type (principal); B18.2 Chronic viral hepatitis C; N39.0 Urinary tract infection, site not specified; F17.200 Nicotine dependence, unspecified, uncomplicated; F41.9 Anxiety disorder, unspecified; G47.00 Insomnia, unspecified; J44.9 Chronic obstructive pulmonary disease, unspecified; K21.9 Gastro-esophageal reflux disease without esophagitis; K59.09 Other constipation; L30.9 Dermatitis, unspecified; G89.29 Other chronic pain; M54.9 Dorsalgia, unspecified; M19.90 Unspecified osteoarthritis, unspecified site; M79.672 Pain in left foot; M79.671 Pain in right foot; E03.9 Hypothyroidism, unspecified; E55.9 Vitamin D deficiency, unspecified; Z88.8 Allergy status to other drugs, medicaments and biological substances; Z79.899 Other long term (current) drug therapy; Z88.5 Allergy status to narcotic agent
CPT/HCPCS: 82306; 83735; 84100; 84443; 85007; 87081; 97110; 97161; 97162; J0401; J1630; J1885; J3535